=== PATIENT | male | born 1940 | race Caucasian/White ===

== ENCOUNTER 2018-10-15 16:28 | Emergency (ER) | payer OTHER ==
[~2018-10-15] VITALS: Ht 177.8 cm; Wt 103.4 kg
[~2018-10-15 16:28] MED LIST: COREG; GLUCOPHAGE1000 MG; INSULIN LEVIMIR; ZESTRIL
[2018-10-15] MEDS ORDERED: LISINOPRIL40 MG PO (16:53)
[2018-10-15] MEDS ORDERED: FLOMAX0.4 MG PO (16:54)
[2018-10-15] MEDS ORDERED: NEURONTIN 300300 M1 PO (16:54)
[2018-10-15] MEDS ORDERED: ASPIR 8181 MG PO (16:54)
[2018-10-15 17:34] LABS: ABSOLUTE BASOPHILS 0.1 thou/uL (0.0-0.2); ABSOLUTE EOSINOPHILS 0.1 thou/uL (0.0-0.7); ABSOLUTE LYMPHOCYTES 1.3 thou/uL (0.8-5.3); ABSOLUTE MONOCYTES 0.7 thou/uL (0.0-1.2); ABSOLUTE NEUTROPHILS 4.9 thou/uL (1.6-8.1); BASOPHILS 0.8 %; EOSINOPHILS 1.8 %; HEMATOCRIT 46.8 % (42.0-52.0); HEMOGLOBIN 15.3 gm/dL (14.0-18.0); LYMPHOCYTES 17.6 %; MCH 25.8 pg (26.0-34.0); MCHC 32.7 g/dL (28.0-37.0); MCV 78.8 fL (80.0-100.0); MONOCYTES 10.4 %; MPV 8.9 fl. (7.2-11.1); NUCLEATED RBCS 0 /100WBC; PLATELET COUNT* 232 thou/uL (150-400); POLYS 69.4 %; RBC 5.94 mil/uL (4.50-6.00); RDW-CV 14.4 % (10.5-14.5); WBC 7.1 thou/uL (4.0-11.0)
[2018-10-15 17:45] LABS: ANION GAP 8 mmol/L (7-16); BUN 31 mg/dL (7-18); CHLORIDE 103 mmol/L (98-107); CO2 25 mmol/L (21-32); CREATININE 1.3 mg/dL (0.6-1.3); GLUCOSE 142 mg/dL (70-99); POTASSIUM 4.8 mmol/L (3.5-5.1); SODIUM 136 mmol/L (136-145)
[2018-10-15 17:51] LABS: ALBUMIN 3.6 g/dL (3.4-5.0); ALKALINE PHOSPHATASE 79 U/L (46-116); LIPASE 121 U/L (73-393); SGOT 26 U/L (15-37); SGPT 47 U/L (30-65); TOTAL BILIRUBIN 0.4 mg/dL (<0.1-1.0); TOTAL PROTEIN 7.2 g/dL (6.4-8.2); TROPONIN-I LEVEL <0.06 ng/mL (<0.06)
[2018-10-15] MEDS ORDERED: LEVAQUIN 750 M750 MG PO (18:42)
[2018-10-15 19:16] VITALS: BP 167/86
--- NOTE | 2018-10-16 10:09 | EKG ---
[place] [address] ELECTROCARDIOGRAM REPORT Name: LENA ANGELA [id number] Admission: 10/15/18 Attend Phys: Discharge: 10/15/18 Date of : 36 Report #: [id number] THIS REPORT FOR: //name// [facility] ED Test Date: 2018-10-15 Test Time: 17:21:46 Pat Name: LENA ANGELA Department: Room: Gender: M Scientific Advisor: : 1940 Requested By: Cedric García Order Number: [id number] MD: Gildardo Fischer Measurements Intervals [place] Rate: 88 P: 42 MI: 156 QRS: 48 QRSD: 95 T: 48 QT: 380 QTc: 460 Interpretive Statements Sinus rhythm Probable left atrial enlargement Compared to ECG 05/05/2011 12:31:49 No significant changes Electronically Signed On 10-16-2018 10:09:16 SURVEYOR HELPER ROD by Gildardo Fischer [email or web address] <ELECTRONICALLY SIGNED> By: Gildardo Fischer MD, [facility] 10/16/18 1009 1721 1721 Gildardo Fischer MD, FACC /EPI
== END 2018-10-15 19:20 | disposition home or self-care (01) ==
LOC: M.ERS 16:28
PROVIDERS: Emergency Medicine Emergency Medical Services
DX: R42 Dizziness and giddiness (principal); T36.4X5A Adverse effect of tetracyclines, initial encounter; Z95.1 Presence of aortocoronary bypass graft; I10 Essential (primary) hypertension; Y92.89 Other specified places as the place of occurrence of the external cause

== ENCOUNTER 2018-11-16 05:23 | Inpatient (IN) | payer OTHER ==
[~2018-11-16] VITALS: Ht 152.4 cm; Wt 99.0 kg
[~2018-11-16 05:23] MED LIST changes: +ASPIR 8181 MG PO; +FLOMAX0.4 MG PO; +LEVAQUIN 750 M750 MG PO; +LISINOPRIL40 MG PO; +NEURONTIN 300300 M1 PO
[2018-11-16 05:24] VITALS: BP 149/73
[2018-11-16 05:35] LABS: ABSOLUTE BASOPHILS 0.1 thou/uL (0.0-0.2); ABSOLUTE EOSINOPHILS 0.2 thou/uL (0.0-0.7); ABSOLUTE LYMPHOCYTES 1.4 thou/uL (0.8-5.3); ABSOLUTE MONOCYTES 0.8 thou/uL (0.0-1.2); ABSOLUTE NEUTROPHILS 4.4 thou/uL (1.6-8.1); BASOPHILS 1.2 %; EOSINOPHILS 2.6 %; HEMATOCRIT 44.3 % (42.0-52.0); HEMOGLOBIN 14.7 gm/dL (14.0-18.0); LYMPHOCYTES 20.2 %; MCH 26.2 pg (26.0-34.0); MCHC 33.3 g/dL (28.0-37.0); MCV 78.7 fL (80.0-100.0); MONOCYTES 11.7 %; NUCLEATED RBCS 0 /100WBC; PLATELET COUNT* 189 thou/uL (150-400); POLYS 64.3 %; RBC 5.63 mil/uL (4.50-6.00); WBC 6.8 thou/uL (4.0-11.0)
[2018-11-16] MEDS ORDERED: TRAZODONE 150150 M1 PO (05:36)
[2018-11-16 05:45] LABS: ANION GAP 7 mmol/L (7-16); BUN 41 mg/dL (7-18); CHLORIDE 104 mmol/L (98-107); CO2 23 mmol/L (21-32); CREATININE 1.7 mg/dL (0.6-1.3); GLUCOSE 147 mg/dL (70-99); SODIUM 134 mmol/L (136-145)
[2018-11-16 05:47] LABS: PROTIME 10.3 Seconds (9.20-11.50)
[2018-11-16 05:57] LABS: ALBUMIN 3.4 g/dL (3.4-5.0); ALKALINE PHOSPHATASE 72 U/L (46-116); LIPASE 156 U/L (73-393); NT-PRO BRAIN NAT PEPTIDE 85 pg/mL (<300); SGOT 21 U/L (15-37); SGPT 35 U/L (30-65); TOTAL BILIRUBIN 0.3 mg/dL (<0.1-1.0); TOTAL PROTEIN 6.6 g/dL (6.4-8.2); TROPONIN-I LEVEL <0.06 ng/mL (<0.06)
[2018-11-16 09:57] VITALS: BP 143/79
[2018-11-16 10:28] VITALS: BP 143/79
[2018-11-16 12:50] VITALS: BP 185/95
--- NOTE | 2018-11-16 13:51 | NUR ---
REHAB CONSULTATION RECEIVED AND ACKNOWLEDGED BY YARD PIPE GRADER AND DR. ROBERT. WILL FOLLOW PT'S CARE AND THERAPY PARTICIPATION. THANK YOU
--- NOTE | 2018-11-16 15:45 | 2DMMODE ---
[place] [address] 2 D/M-MODE ECHOCARDIOGRAM Name: LENA ANGELA Room: [address] IN [facility]#: [id number] Admission: 11/16/18 Attend Phys: Luis Hearn Discharge: Date of : 36 Date of Service: 11/16/18 1545 Report #: [id number] THIS REPORT FOR: //name// APPROVED REPORT Study performed: 11/16/2018 15:10:08 EXAM: Comprehensive 2D, Doppler, and color-flow Echocardiogram Patient Location: In-Patient Room #: [facility]– [place][note 2] Status: routine BSA: 2.17 HR: 84 bpm BP: 185/95 mmHg Rhythm: NSR Other Information Study Quality: Good Indications Murmur 2D Dimensions IVSd: 13.37 (7-11mm) LVOT Diam: 20.02 (18-24mm) LVDd: 43.53 mm PWd: 11.59 (7-11mm) Ascending Ao: 34.58 (22-36mm) LVDs: 23.72 (25-40mm) Aortic Root: 34.12 mm Volumes Left Atrial Volume (Systole) LA ESV Index: 18.90 mL/m2 Aortic Valve AoV Peak Dileep.: 2.81 m/s AO Peak Gr.: 31.47 mmHg LVOT Max P.78 mmHg AO Mean Gr.: 19.13 mmHg LVOT Mean P.14 mmHg LVOT Max V: 1.30 m/s AO V2 VTI: 54.67 cm LVOT Mean V: 0.80 m/s ANN MARIE (VTI): 1.50 cm2 LVOT V1 VTI: 25.96 cm Mitral Valve E/A Ratio: 0.72 MV Decel. Time: 225.41 ms MV E Max Dileep.: 0.81 m/[place] [address] 2 D/M-MODE ECHOCARDIOGRAM Name: LENA ANGELA Room: [address] IN [facility]#: [id number] Admission: 11/16/18 Attend Phys: Luis Hearn Discharge: Date of : 36 Date of Service: 11/16/18 1545 Report #: [id number] MV PHT: 65.37 ms MVA (PHT): 3.37 cm2 TDI E/Lateral E': 11.57 E/Medial E': 10.13 Medial E' Dileep.: 0.08 m/s Lateral E' Dileep.: 0.07 m/s Pulmonary Valve PV Peak Dileep.: 1.08 m/s PV Peak Gr.: 4.63 mmHg Left Ventricle The left ventricle is normal size. There is normal LV segmental wall motion. Mild concentric left ventricular hypertrophy. Left ventricular systolic function is normal. The left ventricular ejection fraction is within the normal range. LVEF is 60-65%. Grade I - abnormal relaxation pattern. Right Ventricle The right ventricle is normal size. The right ventricular systolic function is normal. Atria The left atrium size is normal. The right atrium size is normal. Aortic Valve Moderate aortic valve sclerosis. Trace aortic regurgitation. Mild aortic stenosis. Mitral Valve The mitral valve is normal in structure. There is no mitral valve regurgitation noted. No evidence of mitral valve stenosis. Tricuspid Valve The tricuspid valve is normal in structure. Unable to assess PA pressure. Trace tricuspid regurgitation. Pulmonic Valve The pulmonary valve is normal in structure. There is no pulmonic valvular regurgitation. Great Vessels The aortic root is normal in size. IVC is normal in size and collapses >50% [place] [address] 2 D/M-MODE ECHOCARDIOGRAM Name: LNEA ANGELA Room: [address] IN [facility]#: [id number] Admission: 11/16/18 Attend Phys: Luis Hearn Discharge: Date of : 36 Date of Service: 11/16/18 1545 Report #: [id number] Pericardium There is no pericardial effusion. <Conclusion> The left ventricle is normal size. Mild concentric left ventricular hypertrophy. Left ventricular systolic function is normal. The left ventricular ejection fraction is within the normal range. LVEF is 60-65%. Grade I - abnormal relaxation pattern. The right ventricle is normal size. The left atrium size is normal. Moderate aortic valve sclerosis. Trace aortic regurgitation. Mild aortic stenosis. The mitral valve is normal in structure. The tricuspid valve is normal in structure. IVC is normal in size and collapses >50% with inspiration. There is no pericardial effusion. There is normal LV segmental wall motion. <ELECTRONICALLY SIGNED> By: Mark Rai MD, [facility] 11/16/18 1545 1545 1545 Mark Rai MD, FACC /INF
--- NOTE | 2018-11-16 15:58 | EKG ---
[place] [address] ELECTROCARDIOGRAM REPORT Name: LENA ANGELA Room: [address] ADM IN M.R.#: [id number] Admission: 11/16/18 Attend Phys: Ran Barker Discharge: Date of : 36 Report #: [id number] THIS REPORT FOR: //name// [facility] ED Test Date: 2018-11-16 Test Time: 05:33:17 Pat Name: LENA ANGELA Department: Room: [facility] Gender: M Wind Turbine Performance Engineer: AJ : 1940 Requested By: Naida Mercedes Order Number: [id number] MD: Mark Rai Measurements Intervals [place] Rate: 89 P: 49 DC: 156 QRS: 64 QRSD: 94 T: 5 QT: 381 QTc: 464 Interpretive Statements Sinus rhythm Probable left atrial enlargement Borderline T wave abnormalities Compared to ECG 10/15/2018 17:21:46 T-wave abnormality now present Electronically Signed On 11-16-2018 15:58:07 LUGGER by Mark Rai [email or web address] <ELECTRONICALLY SIGNED> By: Mark Rai MD, [facility] 11/16/18 1558 0533 0533 Mark Rai MD, [facility] /EPI
[2018-11-16 16:03] VITALS: BP 153/75
--- NOTE | 2018-11-16 16:28 | NUR ---
I have reviewed the documentation by JUDSON GLOVER from TODAY 11/16/18 and I concur with it. FELI CORDOVA
[2018-11-16] MEDS ORDERED: NOVOLOG100 UNIT/1 SUBQ (16:33)
[2018-11-16] MEDS ORDERED: LANTUS100 UNIT/M SUBQ (16:34)
--- NOTE | 2018-11-16 16:59 | NUR ---
PT ALERT AND ORIENTED, NIH 0. TELE TRACKING NSR AND ALL VSS ON ROOM AIR. PT DOES C/O NUMBNESS TO BILAT HANDS AND FEET. PT PASSED NURSING BEDSIDE SWALLOW AND ST SWALLOW STUDY- TOLERATING DIET. EDUCATED ON SAFETY AND PLAN OF CARE. PLEASE SEE ASSESSMENT FOR ADDITIONAL INFORMATION. WILL CONTINUE TO MONITOR
[2018-11-16 19:45] VITALS: BP 158/72
[2018-11-17] VITALS: BP 140/60
[2018-11-17 04:00] VITALS: BP 112/64
[2018-11-17 04:39] LABS: ALKALINE PHOSPHATASE 65 U/L (46-116); ANION GAP 7 mmol/L (7-16); BUN 30 mg/dL (7-18); CALCIUM 8.4 mg/dL (8.5-10.1); CHLORIDE 106 mmol/L (98-107); CHOLESTEROL 193 mg/dL (<200); CO2 25 mmol/L (21-32); CREATININE 1.3 mg/dL (0.6-1.3); GLUCOSE 103 mg/dL (70-99); HDL CHOLESTEROL 37 mg/dL (>40); LDL CHOLESTEROL 131 mg/dL (<100); POTASSIUM 4.4 mmol/L (3.5-5.1); SGOT 18 U/L (15-37); SGPT 29 U/L (30-65); SODIUM 138 mmol/L (136-145); TC:HDL 5.2 Ratio (Not establshd); TOTAL BILIRUBIN 0.4 mg/dL (<0.1-1.0); TOTAL PROTEIN 6.1 g/dL (6.4-8.2); TRIGLYCERIDE 127 mg/dL (<150); VLDL 25 mg/dL (<40)
[2018-11-17 04:47] LABS: SERUM ASSESSMENT CLEAR
--- NOTE | 2018-11-17 06:12 | NUR ---
RECEIVED REPORT AND ASSUMED CARE AT 1900. VSS. CARDIAC MONITORING IN PLACE. PT DENIES ANY COMPLAINTS OF PAIN. ASSESSMENT COMPLETED CHARTED. PT UP WITH SBA,ON RA. MEDICATION ADMIN PER EMAR. NIH=0. BED LOCKED IN LOWEST POSITION, CALL LIGHT WITHIN REACH, BED ALARM ON. HOURLY ROUNDING COMPLETED AND ALL NEEDS MET. NURSING WILL CONTINUE TO MONITOR
[2018-11-17 08:11] VITALS: BP 140/80
[2018-11-17 11:12] VITALS: BP 152/71
--- NOTE | 2018-11-17 13:46 | NUR ---
PT ALERT AND ORIENTED, NIH O. PT DOES C/O INTERMITTENT FACIAL "TINGLING". TELE TRACKING NSR AND ALL VSS ON ROOM AIR. DENIES CP, SOA. EDUCATED ON SAFETY AND PLAN OF CARE. PLEASE SEE ASSESSMENT FOR ADDITIONAL INFORMATION. WILL CONTINUE TO MONITOR
--- NOTE | 2018-11-17 14:21 | NUR ---
Pt is A&O. Resides at home alone, states that he has a strong support sx. Independent and active, Pt states that he doesn't cook, he eats frozen meals, but he continues to clean and drive. No DME. No hx of HH or SNF. Pt's goal is to return home, he is open to HH if ordered. Following.
[2018-11-17 16:51] VITALS: BP 111/63
--- NOTE | 2018-11-17 17:32 | NUR ---
CONTINUING TO FOLLOW PATIENT ALONG WITH DR. ROBERT. MRI SHOWING RIGHT FRONTAL CVA. PATIENT WAS EVALUATED BY PT. OT/ST EVALUATIONS ARE PENDING. WILL CONTINUE TO FOLLOW.
[2018-11-17 20:00] VITALS: BP 126/65; BP 136/61
[2018-11-18] VITALS (7 sets, daily range): BP systolic 88–152; BP diastolic 46–64
[2018-11-18 02:06] LABS: GLYCOHEMOGLOBIN (HGB A1C) 9.8 % (4.8-5.6)
[2018-11-18 05:40] LABS: ABSOLUTE BASOPHILS 0.1 thou/uL (0.0-0.2); ABSOLUTE EOSINOPHILS 0.1 thou/uL (0.0-0.7); ABSOLUTE LYMPHOCYTES 1.1 thou/uL (0.8-5.3); ABSOLUTE MONOCYTES 0.8 thou/uL (0.0-1.2); ABSOLUTE NEUTROPHILS 6.1 thou/uL (1.6-8.1); BASOPHILS 0.8 %; EOSINOPHILS 1.1 %; HEMATOCRIT 42.6 % (42.0-52.0); HEMOGLOBIN 13.7 gm/dL (14.0-18.0); LYMPHOCYTES 13.7 %; MCH 25.7 pg (26.0-34.0); MCHC 32.2 g/dL (28.0-37.0); MCV 79.9 fL (80.0-100.0); MONOCYTES 10.3 %; MPV 9.7 fl. (7.2-11.1); NUCLEATED RBCS 0 /100WBC; PLATELET COUNT* 186 thou/uL (150-400); POLYS 74.1 %; RBC 5.33 mil/uL (4.50-6.00); RDW-CV 14.4 % (10.5-14.5); WBC 8.2 thou/uL (4.0-11.0)
[2018-11-18 05:46] LABS: CALCIUM 8.6 mg/dL (8.5-10.1); CREATININE 1.6 mg/dL (0.6-1.3); POTASSIUM 4.6 mmol/L (3.5-5.1)
--- NOTE | 2018-11-18 11:52 | NUR ---
RECEIVED REPORT FROM [facility] NURSE. ASSUMED CARE OF PT AROUND 0730. PT A&OX4. VSS. MECHANIC/WELDER IN PLACE TRACING SR. AM ASSESSMENT AND VITALS COMPLETED CHARTED. PT REPORTING SLIGHT TINGLING IN BILAT HANDS AND SOME BLURRY VISION; NEUROLOGY AWARE AND FOLLOWING. PT WORKED WITH P.T. - WALKER RECOMMENDED. CASE MANAGEMENT FOLLOWING - PT TO DC WITH HOME HEALTH POTENTIALLY TOMORROW. PLAN IS FOR PT TO INCREASE ACTIVIY THIS SHIFT; MONITOR BP'S. PT CURRENTLY RESTING IN BED VISITING WITH FAMILY. FALL PRECAUTIONS IN PLACE. CALL LIGHT IS WITHIN REACH. HOURLY ROUNDING. WCTM.
--- NOTE | 2018-11-18 15:24 | NUR ---
LAND ACQUISITION SPECIALIST NOTATION: MET WITH PATIENT TO DISCUSS PLAN FOR DISCHARGE. NO QUESTIONS THIS TIME.
[2018-11-18 16:15] LABS: URINE BILIRUBIN NEGATIVE (Negative); URINE BLOOD NEGATIVE (Negative); URINE CLARITY CLEAR; URINE COLOR YELLOW; URINE GLUCOSE-RANDOM 1+ (Negative); URINE KETONES NEGATIVE (Negative); URINE LEUKOCYTES-REFLEX NEGATIVE (Negative); URINE NITRITE-REFLEX NEGATIVE (Negative); URINE PROTEIN NEGATIVE (Negative); URINE UROBILINOGEN 0.2 E.U./dl (0.2-1.0)
--- NOTE | 2018-11-18 17:44 | NUR ---
PT CONTINUING TO REPORT BLURRY VISION, THOUGH NIH SCORE IS 0. DOCTOR NOTIFIED - STAT HEAD CT ORDERED. SEE RESULTS. MEDS PER EMAR. TALENT MANAGEMENT SPECIALIST REMAINS IN PLACE WITH NO CHANGES THIS SHIFT. VSS. PT ABLE TO SHOWER WITH O.T. PT TOLERATING DIET; PT FELT LIKE BLOOD GLUCOSE WAS LOW, CHECKED AND READ 208. FAMILY IN AND OUT THIS SHIFT. PT CONCERNED ABOUT WELL-BEING; REASSURANCE GIVEN. PT CURRENTLY RESTING IN BED TALKING ON CELL PHONE. FALL PRECAUTIONS ARE IN PLACE. CALL LIGHT IS WITHIN REACH. HOURLY ROUNDING PERFORMED. ALL NEEDS MET AT THIS TIME. WILL CONTINUE TO MONITOR FOR DURATION OF SHIFT.
[2018-11-19] VITALS (7 sets, daily range): BP systolic 81–155; BP diastolic 39–86
--- NOTE | 2018-11-19 08:00 | NUR ---
ASSUMED PT CARE AT 0700, PT LYING IN BED, CALL LIGHT IN REACH, LODE MINER TRACING SINUS RHYTHM. IV FLUIDS RUNNING, 0 ON THE NIH SCALE, A&O X4. VSS, DENIES ANY PAIN, UP AD ERICA. PT HAD SOME HYPOTENSIVE EPISODES OVER NIGHT, IF BP STABLE SHOULD BE ABLE TO DC THIS DAY. WILL CONT TO MONITOR.
--- NOTE | 2018-11-19 08:21 | NUR ---
ASSUMED PT CARE @ 193. A+OX4. TRACING SR ON MONITOR. PT'S BP LOW AT BEGINNING OF SHIFT. 88/46. GAVE PT BOX LUNCH AND ENNCOURAGED FLUIDS. BP RECHECK CAME UP TO 147/75. PT'S MIDNIGHT BP LOW. SALES SUPPORT TECHNICIAN NOTIFIED. FLUID BOLUS AND CONTINUATION OF MAINTENANCE FLUIDS ORDERED. EFFECTIVE. BP WAS UP TP 130/72 BY 0230. PT C/O OF SOME SOA. PT SEEMED ANXIOUS ABOUT STOPPING BP MEDS AND WHY BP IS LOW AND WANTING TO D/G NEXT DAY. FREQUENT REASSURANCE AND TEACHING. O2 SAT 98% ON RA. PT DID HAVE COUGH AT BEGINNING OF SHIFT. PUT O2 2L ON PT WHILE BP WAS LOW. PT WAS FINALLY ABLE TO FALL ASLEEP AND RELAX. CALL LIGHT IN REACH. HOURLY ROUNDING FOR SAFETY.
[2018-11-19] MEDS ORDERED: ATORVASTATIN CA40 MG PO (13:31)
--- NOTE | 2018-11-19 15:20 | NUR ---
PT DISCHARGED HOME VIA NURSING STAFF WITH FRIEND. EDUCATED ON ALL DISCHARGE INSTRUCTIONS AND MEDICATIONS, IV AND TRADEMARK ATTORNEY REMOVED. HOURLY ROUNDING COMPLETED. PT STATES UNDERSRANDING ON ALL DISCHARGE INSTRUCTIONS.
--- NOTE | 2018-11-21 09:54 | CON ---
[address] [address] CONSULTATION Name: LENA ANGELA Room: [address] IN ..#: [id number] Admission: 11/16/18 Attend Phys: Ran Barker Discharge: 11/19/18 Date of : 36 Report #: [id number] THIS REPORT FOR: //name// CC: Haley Hearn DATE OF SERVICE: 11/16/2018 HISTORY OF PRESENT ILLNESS: This is an 78-year-old male patient who was evaluated by me for dizziness as well as numbness. History is somewhat unstructured, but he indicated that he woke up with dizziness and numbness. In fact, he said it woke him up. There was not much focality and symptoms were mostly generalized. He thought it was his blood sugar, but he checked his blood sugar and it was 106. Since then, he has improved. His symptoms are much better. He denies any prior history of stroke and there was no focality to his symptoms. REVIEW OF SYSTEMS: Indicate that this patient is a diabetic. He said his blood sugar has been fluctuating. He has lost some weight. He never had any history of stroke. He has a history of bypass surgery in 2005. He does have a history of hypertension. He denies any new eye, ENT, cardiac, respiratory, GI, , constitutional, dermatological, hematological, psychiatric, throat, allergic symptom associated with present symptomatology. PAST MEDICAL HISTORY: Positive for coronary artery disease. FAMILY HISTORY: Positive for coronary artery disease. SOCIAL HISTORY: He indicates he does not smoke or drink alcohol. PHYSICAL EXAMINATION: Indicates that he is alert, responsive. His speech, concentration, fund of knowledge and memory is at his baseline. His cranial nerve examinations appear unremarkable. His neuromuscular examinations indicate that his reflexes may be asymmetrical to some extent on the left side. It appeared to be hyper especially in the knee and to some extent on the arm. His position sense is intact on both sides. Knee jerk is definitely elicitable on the left knee. His tone and strength look preserved on both sides. He does not have any cerebellar sign. I could not have a very good look at the patient's fundus. He is a very well developed individual who does not have any dysmorphic features of eyes, ears and face. His vision and hearing look adequate. He does not have any thyroid mass. His pulses are somewhat difficult to feel in the legs, but he has no edema, cyanosis or jaundice. His cardiac examination is unremarkable. He does not have any respiratory difficulty or rhonchi. His blood pressure is 147/80, his respiration is 20, pulse is 77, temperature is 98.3. [place] [address] CONSULTATION Name: COREENLENA Gilbert Room: [address]#: [id number] Admission: 11/16/18 Attend Phys: Ran Barker Discharge: 11/19/18 Date of : 36 Report #: [id number] LABORATORY DATA: His white count is 6.8. His sodium is 134. He did have a CT scan of the head, which appears unremarkable. IMPRESSION: This patient had an episode for which etiology is not clear on examination. Some of his reflexes look asymmetrical and look somewhat hyper on the left side as compared to the right side, especially the knee jerks. Because of that, he needs further workup. We will start with an MRI of the brain to see if we can find some etiology there. If MRI of the brain does not show any pathology, which can explain his symptoms, we may have to work up the spine. He is expected to have some neuropathy and carpal tunnel syndrome with his diabetes. That may be the cause of the numbness of his hands and feet, but that needs to be addressed as an outpatient. RECOMMENDATIONS: 1. MRI. 2. MRA. 3. We will await this workup to see if we need any spine workup. 4. He needs some workup of neuropathy, but that will be done as an outpatient since we do not have any EMG machine. <ELECTRONICALLY SIGNED> By: Marciano Ríos MD 11/21/18 0954 0956 1907Marciano Ríos MD /nt
== END 2018-11-19 15:27 | disposition home or self-care (01) | DRG 64 ==
LOC: M.ERS 05:23 → M.2W 08:25 → M.TBA-ER 08:25 → M.2W 09:42
PROVIDERS: Emergency Medicine; ADMIT Internal Medicine
DX: I63.9 Cerebral infarction, unspecified (principal); N17.0 Acute kidney failure with tubular necrosis; I10 Essential (primary) hypertension; K21.9 Gastro-esophageal reflux disease without esophagitis; I25.10 Atherosclerotic heart disease of native coronary artery without angina pectoris; N40.0 Benign prostatic hyperplasia without lower urinary tract symptoms; E11.40 Type 2 diabetes mellitus with diabetic neuropathy, unspecified; F32.9 Major depressive disorder, single episode, unspecified; F43.10 Post-traumatic stress disorder, unspecified; R01.1 Cardiac murmur, unspecified; I35.8 Other nonrheumatic aortic valve disorders; I35.0 Nonrheumatic aortic (valve) stenosis; G90.9 Disorder of the autonomic nervous system, unspecified; Z95.1 Presence of aortocoronary bypass graft; Z82.49 Family history of ischemic heart disease and other diseases of the circulatory system; Z79.899 Other long term (current) drug therapy

== ENCOUNTER 2018-11-24 20:33 | Inpatient (IN) | payer OTHER ==
[~2018-11-24] VITALS: Ht 177.8 cm; Wt 98.9 kg
[~2018-11-24 20:33] MED LIST changes: +ATORVASTATIN CA40 MG PO; +LANTUS100 UNIT/M SUBQ; +NOVOLOG100 UNIT/1 SUBQ; +TRAZODONE 150150 M1 PO
[2018-11-24 20:36] VITALS: BP 180/86
[2018-11-24 20:50] LABS: ABSOLUTE BASOPHILS 0.1 thou/uL (0.0-0.2); ABSOLUTE EOSINOPHILS 0.1 thou/uL (0.0-0.7); ABSOLUTE LYMPHOCYTES 1.4 thou/uL (0.8-5.3); ABSOLUTE MONOCYTES 0.8 thou/uL (0.0-1.2); ABSOLUTE NEUTROPHILS 4.9 thou/uL (1.6-8.1); BASOPHILS 1.1 %; EOSINOPHILS 1.6 %; HEMATOCRIT 45.8 % (42.0-52.0); HEMOGLOBIN 15.1 gm/dL (14.0-18.0); LYMPHOCYTES 19.6 %; MCH 25.7 pg (26.0-34.0); MCHC 32.9 g/dL (28.0-37.0); MCV 78.3 fL (80.0-100.0); MONOCYTES 10.8 %; MPV 9.2 fl. (7.2-11.1); NUCLEATED RBCS 0 /100WBC; PLATELET COUNT* 214 thou/uL (150-400); POLYS 66.9 %; RBC 5.85 mil/uL (4.50-6.00); RDW-CV 14.3 % (10.5-14.5); WBC 7.4 thou/uL (4.0-11.0)
[2018-11-24 20:58] LABS: ANION GAP 7 mmol/L (7-16); BUN 32 mg/dL (7-18); CALCIUM 9.6 mg/dL (8.5-10.1); CHLORIDE 103 mmol/L (98-107); CO2 25 mmol/L (21-32); CREATININE 1.4 mg/dL (0.6-1.3); GLUCOSE 100 mg/dL (70-99); POTASSIUM 4.3 mmol/L (3.5-5.1); SODIUM 135 mmol/L (136-145)
[2018-11-24 20:59] LABS: APTT 27.1 Seconds (25.0-31.3); PROTIME 10.1 Seconds (9.20-11.50)
[2018-11-24 21:09] LABS: ALBUMIN 3.7 g/dL (3.4-5.0); ALKALINE PHOSPHATASE 74 U/L (46-116); NT-PRO BRAIN NAT PEPTIDE 124 pg/mL (<300); SGOT 20 U/L (15-37); SGPT 42 U/L (30-65); TOTAL BILIRUBIN 0.3 mg/dL (<0.1-1.0); TOTAL PROTEIN 7.3 g/dL (6.4-8.2); TROPONIN-I LEVEL <0.06 ng/mL (<0.06)
[2018-11-24 21:51] LABS: URINE BILIRUBIN NEGATIVE (Negative); URINE BLOOD NEGATIVE (Negative); URINE CLARITY CLEAR; URINE COLOR YELLOW; URINE GLUCOSE-RANDOM NEGATIVE (Negative); URINE KETONES NEGATIVE (Negative); URINE LEUKOCYTES-REFLEX NEGATIVE (Negative); URINE NITRITE-REFLEX NEGATIVE (Negative); URINE PROTEIN NEGATIVE (Negative); URINE UROBILINOGEN 0.2 E.U./dl (0.2-1.0)
[2018-11-24 22:53] VITALS: BP 177/84
[2018-11-24 23:00] VITALS: BP 150/79
--- NOTE | 2018-11-25 01:32 | NUR ---
PT. TRANSFERRED VIA ER CART TO ROOM 112 @ 7876. STEADY. ALERT AND ORIENTED. ROOM AIR. VITAL SIGNS WITHIN NORMAL LIMITS. ORIENTED TO ROOM. UP AD ERICA. DENIES NEEDS, CALL LIGHT IN REACH. WILL CONTINUE TO MONITOR.
--- NOTE | 2018-11-25 05:29 | NUR ---
PT. HAS BEEN AMBULATING DOWN HALLWAYS THROUGHOUT ENTIRE EVENING. HAS NOT SLEPT SINCE ADMISSION. VERY RESTLESS. WONDERING WHEN HE WILL GO HOME. ENCOURAGED TO LAY DOWN AND GET SOME REST SO HE CAN DISCUSS DISCHARGE PLANS WITH DOCTOR WHEN THEY ROUND. WILL CONTINUE TO MONITOR.
--- NOTE | 2018-11-25 09:26 | EKG ---
[place] [address] ELECTROCARDIOGRAM REPORT Name: LENA ANGELA Room: [address] ADM IN R.#: [id number] Admission: 11/24/18 Attend Phys: Ran Barker Discharge: Date of : 36 Report #: [id number] THIS REPORT FOR: //name// [facility] ED Test Date: 2018-11-24 Test Time: 20:37:49 Pat Name: LENA ANGELA Department: Room: [facility] Gender: M Medical Officer Psychiatry: : 1940 Requested By: Tolu Rajput Order Number: [id number] MD: Gildardo Fischer Measurements Intervals [place] Rate: 88 P: 61 OR: 160 QRS: 63 QRSD: 93 T: 54 QT: 395 QTc: 478 Interpretive Statements Sinus rhythm Probable left atrial enlargement Borderline prolonged QT interval Compared to ECG 11/16/2018 05:33:17 no change Electronically Signed On 11-25-2018 9:26:07 REAL ESTATE UTILIZATION OFFICER by Gildardo Fischer [email or web address] <ELECTRONICALLY SIGNED> By: Gildardo Fischer MD, [facility] 11/25/18925 36 36 Gildardo Fischer MD, [facility] /EPI
[2018-11-25 11:10] VITALS: BP 153/81
--- NOTE | 2018-11-25 12:02 | NUR ---
PT.TO BE DISCHARGED TODAY. HE WAS WANTING TO GO HOME BECAUSE HE HAS A DANCE TO GO TO TOMORROW EVENING. HE LIKES DANCING WITH ALL THE LADIES. HE IS FEELING BETTER. HE LIVES ALONE. CONTINUES TO DRIVE,CLEAN, COOK,ETC. HE HAS A WALKER BUT DOESN'T USE IT. PT.WILL NEED A CAB VOUCHER TO GET HOME. ONE PROVIDED TO PTS NURSE.
[2018-11-25 14:33] VITALS: BP 153/81
[2018-11-25] MEDS ORDERED: COLACE100 MG PO (14:36)
--- NOTE | 2018-11-25 15:22 | NUR ---
I ASSUMED CARE OF THE PATIENT AT 0700. HE IS ALERT AND ORIENTED X4 AND IS UP AD ERICA. BED IS IN THE LOW LOCKED POSITION AND CALL LIGHT IS IN REACH. HOURLY ROUNDING WAS COMPLETED AND PATIENT NEEDS ARE MET. PAIN IS DENIED. PATIENT IS DISCHARGED TO HOME AND TRANSPORTATION WAS USED TO GET HIM HOME. IV IS REMOVED.
[2018-11-25 15:31] VITALS: BP 153/81
== END 2018-11-25 14:25 | disposition home or self-care (01) | DRG 641 ==
LOC: M.ERS 20:33 → M.ORTHSURG 21:51 → M.TBA-ER 21:51 → M.ORTHSURG 23:09
PROVIDERS: Family Medicine; ADMIT Internal Medicine
DX: E86.0 Dehydration (principal); I10 Essential (primary) hypertension; K21.9 Gastro-esophageal reflux disease without esophagitis; Z86.73 Personal history of transient ischemic attack (TIA), and cerebral infarction without residual deficits; Z95.1 Presence of aortocoronary bypass graft; Z79.899 Other long term (current) drug therapy; Z79.82 Long term (current) use of aspirin

== ENCOUNTER 2018-11-29 12:23 | Inpatient (IN) | payer OTHER ==
[~2018-11-29] VITALS: Ht 177.8 cm; Wt 101.6 kg
[~2018-11-29 12:23] MED LIST changes: +COLACE100 MG PO
[2018-11-29 12:24] VITALS: BP 154/76
[2018-11-29 12:49] LABS: ABSOLUTE EOSINOPHILS 0.1 thou/uL (0.0-0.7); ABSOLUTE LYMPHOCYTES 1.2 thou/uL (0.8-5.3); ABSOLUTE MONOCYTES 0.7 thou/uL (0.0-1.2); ABSOLUTE NEUTROPHILS 5.1 thou/uL (1.6-8.1); BASOPHILS 0.6 %; HEMATOCRIT 47.4 % (42.0-52.0); HEMOGLOBIN 15.6 gm/dL (14.0-18.0); LYMPHOCYTES 16.7 %; MCH 26.1 pg (26.0-34.0); MCV 79.1 fL (80.0-100.0); MONOCYTES 9.6 %; MPV 9.7 fl. (7.2-11.1); NUCLEATED RBCS 0 /100WBC; PLATELET COUNT* 197 thou/uL (150-400); POLYS 72.1 %; RDW-CV 14.5 % (10.5-14.5); WBC 7.1 thou/uL (4.0-11.0)
[2018-11-29 12:54] LABS: ANION GAP 9 mmol/L (7-16); BUN 36 mg/dL (7-18); CALCIUM 9.3 mg/dL (8.5-10.1); CHLORIDE 99 mmol/L (98-107); CO2 25 mmol/L (21-32); CREATININE 1.6 mg/dL (0.6-1.3); GLUCOSE 216 mg/dL (70-99); POTASSIUM 4.7 mmol/L (3.5-5.1); SODIUM 133 mmol/L (136-145)
[2018-11-29 13:00] LABS: URINE BILIRUBIN NEGATIVE (Negative); URINE BLOOD NEGATIVE (Negative); URINE CLARITY CLEAR; URINE COLOR YELLOW; URINE GLUCOSE-RANDOM 1+ (Negative); URINE KETONES NEGATIVE (Negative); URINE LEUKOCYTES-REFLEX NEGATIVE (Negative); URINE NITRITE-REFLEX NEGATIVE (Negative); URINE PROTEIN NEGATIVE (Negative); URINE SPECIFIC GRAVITY <= 1.005 (1.005-1.030); URINE UROBILINOGEN 0.2 E.U./dl (0.2-1.0)
[2018-11-29 13:01] LABS: ALBUMIN 3.8 g/dL (3.4-5.0); ALKALINE PHOSPHATASE 88 U/L (46-116); MAGNESIUM 2.2 mg/dL (1.8-2.4); SGOT 19 U/L (15-37); SGPT 39 U/L (30-65); TOTAL BILIRUBIN 0.4 mg/dL (<0.1-1.0); TOTAL PROTEIN 7.5 g/dL (6.4-8.2); TROPONIN-I LEVEL <0.06 ng/mL (<0.06)
[2018-11-29 17:41] VITALS: BP 167/82
[2018-11-29 17:50] VITALS: BP 137/74
--- NOTE | 2018-11-29 18:40 | NUR ---
PATINET RESTING IN BED. VITAL OBTAINED AND PATIENT ORIENTED TO ROOM. HOME MEDICATION RECONCILED AND PATINET IS AWARE OF CARE PLAN AND HIS PARTICIPATION IN IT. HOURLY ROUNDING COMPLETED FOR PATINET SAFETY.
[2018-11-29 20:00] VITALS: BP 112/61
[2018-11-29 20:19] LABS: CHOLESTEROL 240 mg/dL (<200); HDL CHOLESTEROL 42 mg/dL (>40); LDL CHOLESTEROL 163 mg/dL (<100); TC:HDL 5.7 Ratio (Not establshd); TRIGLYCERIDE 175 mg/dL (<150); VLDL 35 mg/dL (<40)
[2018-11-29 20:26] LABS: SERUM ASSESSMENT Clear
[2018-11-30] VITALS: BP 153/72
[2018-11-30 04:00] VITALS: BP 150/72
--- NOTE | 2018-11-30 05:21 | NUR ---
RECEIVED REPORT AND ASSUMED CARE AT 1900. VSS. CARDIAC MONITORING IN PLACE. PT DENIES COMPLAINTS OF PAIN. ASSESSMENT COMPLETED CHARTED. PT UP SBA TO BATHROOM,ON RA. BED LOCKED IN LOWEST POSITION, CALL LIGHT WITHIN REACH, BED ALARM ON. HOURLY ROUNDING COMPLETED AND ALL NEEDS MET.
[2018-11-30 08:20] VITALS: BP 150/70
--- NOTE | 2018-11-30 08:53 | NUR ---
REHAB CONSULT RECEIVED AND ACKNOWLEDGED BY DR ROBERT AND HOT PIPE GAUGER. PT RETURNED TO HOSPITAL AFTER BEING DISCHARGED A FEW DAYS PREVIOUS WITH SIMILAR SYPTOMS. PT WITH MRI SHOWING CVA ON FIRST ADMISSION. PT RETURNS WITH EXACERBATED SYMPTOMS. WILL FOLLOW PT THROUGH MEDICAL CARE, AWAITING PT,OT AND ST EVALUATIONS TO DETERMINE PT'S THERAPY NEEDS. THANK YOU FOR THIS CONSULT
--- NOTE | 2018-11-30 09:49 | NUR ---
VP INFORMATION TECHNOLOGY; MET WITH PATIENT THIS MORNING. COMPLAINS OF SOME NUMBNESS ON BOTH SIDES OF FACE, SENSATION IS EQUAL. DISCUSSED USE OF STATIN PATIENT REPORTED HISTORY OF MUSCLE SPASMS AND WILL NOT TAKE, DISCUSSED OTHER OPTIONS WITH DIET. UP TO BATHROOM WITH ROLLING WALKER AND ASSIST OF ONE.
--- NOTE | 2018-11-30 11:08 | NUR ---
RECEIVED REPORT FROM LINDA AND ASSUMED CARE OF PT AT 0730,PT IS A/OX4,VSS.TRACING SR ON MONITOR.IV PATENT WITH IV FLUIDS INFUSING PER ORDERS.NIH COMPLETED PER PROTOCOL.PT IS TEARFUL BUT COOPERATIVE.PT COMPLAINS OF NUMBNESS AND TINGLING IN EYES AND NOSE,NIH SCALE COMPLETED AND DR NOTIFIED.PT LEFT REST IN BED WITH CALL LIGHT AND FALL PRECAUTIONS IN PLACE.WILL CONTINUE IN MONITORED.
[2018-11-30 11:39] VITALS: BP 160/73
--- NOTE | 2018-11-30 11:45 | NUR ---
THIS NURSE REVIEWED THE CHARTING AND NOTES OF THE ORIENTEE NURSE AND AGREES.
--- NOTE | 2018-11-30 12:29 | NUR ---
Pt is A&O. Resides at home alone. Known to this CM from previous hospital stay, Pt was here earlier this month. Normally independent, continues to clean and drive, Pt eats frozen meals. No hx of HH or SNF. Pt has a walker at home that he can use if needed. Pt states he has a good support sx. Following for disposition.
[2018-11-30 15:38] VITALS: BP 137/68
--- NOTE | 2018-11-30 16:00 | EKG ---
[place] [address] ELECTROCARDIOGRAM REPORT Name: LENA ANGELA Room: [address] ADM IN .R.#: [id number] Admission: 11/29/18 Attend Phys: Destinee Ortiz MD Discharge: Date of : 36 Report #: [id number] THIS REPORT FOR: //name// [facility] ED Test Date: 2018-11-29 Test Time: 12:36:51 Pat Name: LENA ANGELA Department: Room: [facility] Gender: M Lease Buyer: ANAHI : 1940 Requested By: Diane Goldman Order Number: [id number] MD: Mark Rai Measurements Intervals [place] Rate: 92 P: 50 CA: 159 QRS: 53 QRSD: 90 T: 13 QT: 380 QTc: 471 Interpretive Statements Sinus rhythm Probable left atrial enlargement Baseline wander in lead(s) V2 Compared to ECG 11/24/2018 20:37:49 No significant changes Electronically Signed On 11-30-2018 16:00:38 FOUNDATION DRILL OPERATOR HELPER by Mark Rai [email or web address] <ELECTRONICALLY SIGNED> By: Mark Rai MD, [facility] 11/30/18 1600 1236 1236 Mark Rai MD, [facility] /EPI
--- NOTE | 2018-11-30 17:51 | NUR ---
VSS,CARDIAC MOMITOR IN PLACE WITH NO CHANGES.NO COMPLAINTS OF PAIN.IV PATENT WITH IV FLUIDS INFUSING PER ORDER.PT TO BE NPO AT MIDNIGHT FOR ANNIE IN THE AM .PT INFORMED OF PLAN OF CARE AND COMMUNICATES UNDERSTANDING.PT AMBULATED IN HALLWAY WITH NURSING STAFF.HOURLY ROUNDING COMPLETED FOR PT SAFETY.CALL LIGHT AND FALL PRECAUTIONS IN PLACE.WILL CONTINUE TO MONITOR FOR DURATION OF SHIFT.
--- NOTE | 2018-11-30 17:59 | NUR ---
THIS NURSE REVIEWED ORIENTEE NURSE PM NOTE AND AGREES.
[2018-11-30 19:50] VITALS: BP 148/69
[2018-12-01] VITALS (15 sets, daily range): BP systolic 105–193; BP diastolic 58–98
[2018-12-01 02:07] LABS: GLYCOHEMOGLOBIN (HGB A1C) 9.5 % (4.8-5.6)
--- NOTE | 2018-12-01 04:00 | NUR ---
RECIEVED REPORT AND ASSUMED CARE AT 1900. BOOM STORAGE IN PLACE. VITAL SIGNS ARE STABLE. PT IS UP WITH STANDBY. PT DENIES ANY PAIN AT THIS TIME. ASSESSMENT COMPLETED, DISCUSSED PLAN OF CARE, PT UNDERSTANDS. BED LOCKED, ALARM ON, AND CALL LIGHT WITHIN REACH. FALL PRECAUTIONS IN PLACE. HOURLY ROUNDING DONE AND ALL NEEDS MET NURSING WILL CONTINUE TO MONITOR.
--- NOTE | 2018-12-01 17:53 | NUR ---
ASSUMED PT CARE REPORT RECEIVED FORM NURSE. PT IS AOX4 SR ON TECHNOLOGY METHODOLOGY CONSULTANT. NO PAIN. BLOOD SUGAR LOW 76 NO INSULIN GIVEN. INSULIN GIVEN AT 1600. PT ATE LUNCH AND DINNER. PT WENT DOWN TO ANNIE TODAY. POST ANNIE. PT IS STABLE. D4 1/2 NS DC'D. PT AMBULATES WITH WALKER. RA AND SATURATION IS ABOVE 95%. DESIREE CONTINUE TO MONITOR PT
--- NOTE | 2018-12-01 17:57 | TEE ---
[place] [address] TRANSESOPHAGEAL ECHOCARDIOGRAM Name: LENA ANGELA Room: [address] IN [facility]#: [id number] Admission: 11/29/18 Attend Phys: Destinee Ortiz, Discharge: Date of : 36 Date of Service: 12/01/18 1757 Report #: [id number] THIS REPORT FOR: //name// APPROVED REPORT Study performed: 12/01/2018 11:29:46 EXAM: Transesophageal Echocardiogram Patient Location: In-Patient Room #: [facility] Status: routine BSA: 2.18 HR: 97 bpm BP: 193/98 mmHg Rhythm: NSR Other Information Study Quality: Good Indications CVA/TIA Echo Enhancing Agent Indication: Rule out Shunt Agent(s) / Amount(s) Used: Agitated Saline 10 cc Procedure After obtaining informed consent, patient underwent transesophageal echo in the [employer]. Type of Sedation : Conscious Sedation Sedation was administered by Gabrielle Eason RN. Sedation start time: 1203 Case end Time: 1218 Sedation was achieved intravenously with: Versed (3) Fentanyl (50) Transesophageal probe was inserted and advanced into esophagus without difficulty by Porter Lomeli MD, FACC. Echo enhancement indication: R/O Septal defect. Echo enhancement agent administered: Agitated Saline The ANNIE was performed without complications. Throughout the procedure, the blood pressure, pulse oximetry, cardiac rhythm, and rate were monitored. The patient tolerated the procedure without adverse effects. Recovery from conscious sedation was uneventful and vital signs were stable. [place] [id number] TRANSESOPHAGEAL ECHOCARDIOGRAM Name: LENA ANGELA Room: [address]#: [id number] Admission: 11/29/18 Attend Phys: Destinee Ortiz, Discharge: Date of : 36 Date of Service: 12/01/18 1757 Report #: [id number] Left Ventricle The left ventricle is normal size. There is normal LV segmental wall motion. Mild concentric left ventricular hypertrophy. Left ventricular systolic function is normal. LVEF is 60-65%. Right Ventricle The right ventricle is normal size. The right ventricular systolic function is normal. Atria No thrombus is visualized in the left atrium or appendage. Interatrial septum is intact without evidence of ASD or PFO. The right atrium size is normal. Aortic Valve Moderate aortic valve sclerosis. Mild aortic regurgitation. There appears to be at least mild aortic stenosis. Mitral Valve The mitral valve is normal in structure. Trace mitral regurgitation. No evidence of mitral valve stenosis. Tricuspid Valve Tricuspid valve is not well visualized. Pulmonic Valve Pulmonic valve is not well visualized. Great Vessels The aortic root is normal in size. Pericardium There is no pericardial effusion. <Conclusion> The left ventricle is normal size. Mild concentric left ventricular hypertrophy. Left ventricular systolic function is normal. LVEF is 60-65%. No thrombus is visualized in the left atrium or appendage. Interatrial septum is intact without evidence of ASD or PFO. Moderate aortic valve sclerosis. [address] [address] TRANSESOPHAGEAL ECHOCARDIOGRAM Name: LENA ANGELA Room: [address]#: [id number] Admission: 11/29/18 Attend Phys: Destinee Ortiz, Discharge: Date of : 36 Date of Service: 12/01/181756 Report #: [id number] Mild aortic regurgitation. There appears to be at least mild aortic stenosis. Consider transthoracic echocardiogram to further define severity of aortic stenosis. <ELECTRONICALLY SIGNED> By: Porter Lomeli MD, FACC 12/01/181756 56 56 Porter Lomeli MD, FACC /INF
[2018-12-02 00:10] VITALS: BP 141/68
[2018-12-02 04:14] VITALS: BP 140/70
--- NOTE | 2018-12-02 04:55 | NUR ---
ASSUMED PATIENT CARE AT 1900. PATIENT ALERT AND ORIENTED TIMES FOUR. NO COMPLAINTS OF PAIN OR DISCOMFORT NOTED. PATIENT HAD A SHOWER AT APPROX 0100. UNABLE TO GO TO SLEEP UNTIL APPROX 0400. UP WITH STB AND WALKER. PATIENT IS HOPING TO GO HOME TODAY. TYPEWRITERS FUNCTIONAL TESTER AND HOURLY ROUNDING COMPLETED CHARTED.
[2018-12-02 05:40] LABS: HEMATOCRIT 43.4 % (42.0-52.0); HEMOGLOBIN 14.2 gm/dL (14.0-18.0); MCH 25.3 pg (26.0-34.0); MCHC 32.8 g/dL (28.0-37.0); MCV 77.3 fL (80.0-100.0); MPV 9.2 fl. (7.2-11.1); RBC 5.62 mil/uL (4.50-6.00); RDW-CV 14.3 % (10.5-14.5); WBC 5.1 thou/uL (4.0-11.0)
[2018-12-02 06:17] LABS: CALCIUM 8.8 mg/dL (8.5-10.1); CREATININE 1.2 mg/dL (0.6-1.3); POTASSIUM 4.3 mmol/L (3.5-5.1); TOTAL BILIRUBIN 0.2 mg/dL (<0.1-1.0); TOTAL PROTEIN 6.3 g/dL (6.4-8.2)
[2018-12-02 08:00] VITALS: BP 157/68
--- NOTE | 2018-12-02 13:27 | NUR ---
RUG HOOKER HAND SPOKE TO THE PATIENT TO DISCUSS DISCHARGE PLANNING NEEDS AND HH AT D/C. PATIENT IN AGREEMENT WITH HH WITH [facility]. RUG HOOKER HAND SPOKE TO CLAUDE WITH [facility] TO INFORM OF THE REFERRAL FOR HH, AND SHE CONFIRMS THAT [facility] IS ABLE TO ACCEPT THE PATIENT AT D/C. PATIENT MAY BE READY TO D/C TOMORROW AND [facility] IS AWARE. [facility] WILL NEED TO BE INFORMED AND PATIENT'S D/C, AND D/C ORDERS WILL NEED TO BE FAXED IF PATIENT D/C'S OVER THE WEEKEND. CM WILL REMAIN AVIALABLE TO ASSIST AND FOLLOW NEEDED. [facility] HH PHONE: [phone] FAX: [phone]
--- NOTE | 2018-12-02 15:35 | EKG ---
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 : 1940 Requested By: Destinee Ortiz Order Number: [id number] Reading MD: Mark Rai Measurements Intervals [place] Rate: 94 P: 49 MA: 155 QRS: 54 QRSD: 90 T: 37 QT: 373 QTc: 467 Interpretive Statements Sinus rhythm Baseline wander in lead(s) V5 Compared to ECG 11/29/2018 12:36:51 No significant changes Electronically Signed On 12-02-2018 15:35:42 GOLD CHARMER by Mark Rai [email or web address] <ELECTRONICALLY SIGNED> By: Mark Rai MD, [facility] 12/02/18 1535 0907 0907 Mark Rai MD, [facility] /EPI
[2018-12-02 16:35] VITALS: BP 132/66
--- NOTE | 2018-12-02 18:23 | NUR ---
ASSUMED PT CARE REPORT RECEIVED FORM NURSE. 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 VSS. COMPLAINS OF INCREASED WEAKNESS. BLOOD SUGAR 130. NIH SCORE 6 COMPLARED TO 1 YESTERDAY. NURSE NOTICED WEAKNESS IN ANTOINE EXTREMITIES AND ASYMETRY IN SMILE. CODE STROKE CALLED. CT OF HEAD ORDERED BY DR MCDANIEL HOSPITALIST. CT NEGATIVE. MRI ORDERED FOLLOW UP. RESULT ARE NEGATIVE WELL. PT SEEMS TO BE ANXIOUS AND WORRY ABOUT TINGLINGIN HIS FACE AND NECK. BUSPIRONE GIVEN ORDERED. PT IS DOING BETTER NOW. WORKED WITH PT AND OT. ATE DINER. CHANGES MADE IN HIS LEVEMIR DOSE FOR NIGHT TIME. PT IS STABLE WILL CONTINUE TO MONITOR
[2018-12-02 19:50] VITALS: BP 162/72
[2018-12-03 00:48] VITALS: BP 142/69
--- NOTE | 2018-12-03 03:20 | NUR ---
RECIEVED REPORT AND ASSUMED CARE AT 1900. ELECTROMECHANICAL EQUIPMENT ASSEMBLER IN PLACE. SYSTOLIC BP ELEVATED, OTHER THAN THAT VITAL SIGNS STABLE. PT UP ADLIB WITH WALKER. PT DENIES ANY PAIN AT THIS TIME. ASSESSMENT COMPLETED, DISCUSSED PLAN OF CARE AND PT UNDERSTANDS. BED LOCKED AND CALL LIGHT WITHIN REACH. FALL PRECAUTIONS IN PLACE. HOURLY ROUNDING DONE AND ALL NEEDS MET. NURSING WILL CONTINUE TO MONITOR.
[2018-12-03 04:00] VITALS: BP 133/66
[2018-12-03 08:00] VITALS: BP 148/67
[2018-12-03 12:00] VITALS: BP 186/81
[2018-12-03 16:00] VITALS: BP 134/65
--- NOTE | 2018-12-03 19:00 | NUR ---
ASSUMD PT CARE PT IS AOX4 SR ON MONITOR VSS. MONITORING BLOOD SUGAR PT AMBULATES WITH WALKER. ATE MEALS. GOOD APPETITE. NO BLOOD SUGAR ISSUE WILL CONTINUE TO MONITOR
[2018-12-03 19:40] VITALS: BP 142/57
[2018-12-04] VITALS: BP 130/68
--- NOTE | 2018-12-04 01:42 | NUR ---
RECIEVED REPORT AND ASSUMED CARE AT 1900. GRADER GREEN MEAT IN PLACE. DISTOLIC BP A LITTLE LOW, OTHER THAN THAT VITAL SIGNS STABLE. PT IS UP ADLIB WITH WALKER. PT DENIES ANY PAIN AT THIS TIME. ASSESSMENT COMPLETED, DISCUSSED PLAN OF CARE AND PT UNDERSTANDS. BED LOCKED AND CALL LIGHT WITHIN REACH. FALL PRECAUTIONS IN PLACE. HOURLY ROUNDING DONE AND ALL NEEDS MET. NURSING WILL CONTINUE TO MONITOR.
[2018-12-04 04:00] VITALS: BP 145/58
--- NOTE | 2018-12-04 07:05 | NUR ---
CHANGE OF SHIFT. BEDSIDE REPORT GIVEN PATIENT SEEN IN BED RESTING ASSUMED PATIENT CARE
[2018-12-04 08:00] VITALS: BP 145/71
[2018-12-04 12:30] VITALS: BP 156/73
[2018-12-04] MEDS ORDERED: ASPIRIN325 PO (12:30)
[2018-12-04] MEDS ORDERED: LANTUS100 UNIT/M SUBQ (12:30)
[2018-12-04] MEDS ORDERED: BUSPIRONE HCL5 MG PO (12:30)
[2018-12-04] MEDS ORDERED: PLAVIX 75 MG TA75 M1 PO (12:30)
[2018-12-04 14:30] VITALS: BP 156/73
[2018-12-04 15:27] VITALS: BP 156/73
--- NOTE | 2018-12-04 16:00 | NUR ---
PATIENT DISHARGED TO HOME WITH H/H ALL DC INSTRUCTIONS GIVEN, ACKNOWLEDGED, SIGNED COPIES GIVEN IV AND HEART MONITOR REMOVED AND PERSONAL BELONGINGS RETURNED ESCORTED DOWN TO ER TO TAXI CAB
[2018-12-05] MEDS ORDERED: LISINOPRIL20 MG PO (08:03)
[2018-12-05] MEDS ORDERED: TESSALON PERLE100 M1 PO (09:59)
--- NOTE | 2018-12-05 13:52 | CON ---
[address] [address] CONSULTATION Name: COREENLENA Gilbert Room: [address] IN ..#: [id number] Admission: 11/29/18 Attend Phys: Destinee Ortiz MD Discharge: 12/04/18 Date of : 38 Report #: [id number] THIS REPORT FOR: //name// CC: Zana Ortiz DATE OF SERVICE: 11/30/2018 HISTORY OF PRESENT ILLNESS: This is an 78-year-old male patient who was seen by me during the last admission. I reviewed those records. I talked to the Emergency Room physician who admitted this patient. The patient presents with the same symptoms, which he presented last time. He is complaining of paresthesias in all 4 extremities, especially in the upper extremities. It is a longstanding problem, it intermittently becomes better and intermittently becomes worse by itself. He does not know anything which makes it better or worse. They did workup in the Emergency Room and he had an MRI of the brain done, which demonstrated a small stroke in the right parietal occipital area. We had done workup in this patient last time and that had shown a right frontal area stroke, which has no correlation with his symptoms. Even present stroke will not correlate with his symptoms. His diabetes is uncontrolled and he will not take statin for hyperlipidemia. He did not even fill his prescriptions. 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 He has declined MRI in the past, but is more willing to do that. He said he is having some trouble with bladder and bowel. He had some constipation and some incontinence. Last time, we had checked a sed rate and it was only 3. He is a diabetic. He has hyperlipidemia. PAST MEDICAL HISTORY: Positive for stroke. He does have a pretty significant history of coronary artery disease in the past. FAMILY HISTORY: Negative for early age stroke. SOCIAL HISTORY: Indicates he does not smoke. PHYSICAL EXAMINATION: Indicates he is alert, responsive. His speech, concentration, fund of knowledge and memory is at his baseline. Cranial nerve examination is unremarkable. His neuromuscular examination is symmetrical except for reflexes, which are asymmetrical, but they were the same the last time, that is unchanged. He has no carotid bruit, no atrial fibrillation has been documented in this patient. No respiratory difficulty. His blood pressure is running about 150/70, pulse is 74, temperature is 97.6. LABORATORY DATA: His white count is normal. He has markedly elevated LDL. His creatinine is 1.6 and GFR is only 42. His blood sugar has been running [place] [address]s[place] [address] CONSULTATION Name: LENA ANGELA Room: [address]#: [id number] Admission: 11/29/18 Attend Phys: Destinee Ortiz MD Discharge: 12/04/18 Date of : 38 Report #: [id number] IMPRESSION: This is a complicated case. There are following problems which are going on with him: 1. He complained of paresthesias in the hands and just came to the hospital both times to be checked. Both times his MRI demonstrated a small stroke. Neither stroke correlate with his symptom of dizziness as well as paresthesias in all 4 extremities, especially in both upper extremities. However, we need to determine the etiology for his stroke and we need to determine the etiology of his paresthesias. As far as stroke is concerned, it is most likely because of uncontrolled vascular risk factors, which include diabetes and hyperlipidemia. He will not take a statin because somebody in [facility] at one time told him not to take statin. We will add a combination of aspirin and Plavix. I had talked to the ER, they gave him 75 mg and because of that I will just leave him on 75 mg. After 30 days we can switch him to Plavix only depending upon his condition at that time. It is unlikely that we will find anything in the heart, but the last time his echocardiogram had shown some aortic wall abnormalities and because of that I think we should do a ANNIE as well as 30 days event monitor to look for atrial fibrillation. We can also implant the monitor, but he does not want to do that. He does have some carotid disease. It does not look like it is hemodynamically significant on MRA and carotid Doppler. I would be very reluctant to do the CT angiogram with a GFR of only 42 and two tests showing what looks like nonsignificant disease at the moment. It will be very highly desirable if he can go on statin, but he will not do that. I will suggest checking some collagen vascular workup, which I ordered and I will suggest checking the spine because I think that is where his paraesthesia is coming from and he probably also has a carpal tunnel syndrome for which he needs an EMG as an outpatient. This is because he is diabetic. I had talked to the ER doctor last night. A total of 50 minutes time was spent taking care of this patient and majority of that time was spent counseling the patient on above matter as well as coordinating his care. <ELECTRONICALLY SIGNED> By: Marciano Ríos MD 12/05/18 1352 1015 1730Marciano Ríos MD /nt
--- NOTE | 2018-12-08 11:15 | EKG ---
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 12/08/18 1115 0831 0831 Porter Lomeli MD, FACC /EPI
== END 2018-12-04 16:00 | disposition home health service (06) | DRG 65 ==
LOC: M.ERS 12:23 → M.2W 16:40 → M.TBA-ER 16:40 → M.2W 17:31
PROVIDERS: Personal Emergency Response Attendant; Psychiatry & Neurology Neuromuscular Medicine; ADMIT Internal Medicine
PROC: B24BZZ4 Ultrasonography of Heart with Aorta, Transesophageal (ICD-10-PCS; principal; 2018-12-01)
DX: I63.9 Cerebral infarction, unspecified (principal); N17.9 Acute kidney failure, unspecified; K21.9 Gastro-esophageal reflux disease without esophagitis; F32.9 Major depressive disorder, single episode, unspecified; I25.10 Atherosclerotic heart disease of native coronary artery without angina pectoris; I48.91 Unspecified atrial fibrillation; E11.22 Type 2 diabetes mellitus with diabetic chronic kidney disease; I12.9 Hypertensive chronic kidney disease with stage 1 through stage 4 chronic kidney disease, or unspecified chronic kidney disease; N18.3 Chronic kidney disease, stage 3 (moderate); F43.10 Post-traumatic stress disorder, unspecified; I65.29 Occlusion and stenosis of unspecified carotid artery; F41.9 Anxiety disorder, unspecified; G56.00 Carpal tunnel syndrome, unspecified upper limb; E11.40 Type 2 diabetes mellitus with diabetic neuropathy, unspecified; M48.02 Spinal stenosis, cervical region; Z95.1 Presence of aortocoronary bypass graft; Z79.82 Long term (current) use of aspirin; Z79.899 Other long term (current) drug therapy

== ENCOUNTER 2018-12-05 07:56 | Emergency (ER) | payer OTHER ==
[~2018-12-05] VITALS: Ht 177.8 cm; Wt 99.8 kg
[~2018-12-05 07:56] MED LIST changes: +ASPIRIN325 PO; +BUSPIRONE HCL5 MG PO; +PLAVIX 75 MG TA75 M1 PO
[2018-12-05] MEDS ORDERED: LISINOPRIL20 MG PO (08:03)
[2018-12-05 08:25] LABS: HEMOGLOBIN 15.1 gm/dL (14.0-18.0); MCH 25.7 pg (26.0-34.0); MCHC 32.9 g/dL (28.0-37.0); MCV 77.9 fL (80.0-100.0); MPV 9.1 fl. (7.2-11.1); RBC 5.9 mil/uL (4.50-6.00); RDW-CV 14.4 % (10.5-14.5); WBC 7.6 thou/uL (4.0-11.0)
[2018-12-05 08:37] LABS: ANION GAP 8 mmol/L (7-16); BUN 29 mg/dL (7-18); CALCIUM 9.1 mg/dL (8.5-10.1); CHLORIDE 101 mmol/L (98-107); CO2 26 mmol/L (21-32); CREATININE 1.6 mg/dL (0.6-1.3); GLUCOSE 176 mg/dL (70-99); POTASSIUM 4.7 mmol/L (3.5-5.1); SODIUM 135 mmol/L (136-145); TROPONIN-I LEVEL <0.06 ng/mL (<0.06)
[2018-12-05] MEDS ORDERED: TESSALON PERLE100 M1 PO (09:59)
[2018-12-05 10:13] VITALS: BP 147/75
== END 2018-12-05 10:14 | disposition home or self-care (01) ==
LOC: M.ERS 07:56
PROVIDERS: Emergency Medicine Emergency Medical Services
DX: I10 Essential (primary) hypertension (principal); K21.9 Gastro-esophageal reflux disease without esophagitis; F32.9 Major depressive disorder, single episode, unspecified; E11.9 Type 2 diabetes mellitus without complications; Z86.73 Personal history of transient ischemic attack (TIA), and cerebral infarction without residual deficits; Z95.1 Presence of aortocoronary bypass graft; Z79.4 Long term (current) use of insulin

== ENCOUNTER 2018-12-09 12:51 | Inpatient (IN) | payer OTHER ==
[~2018-12-09] VITALS: Ht 177.8 cm; Wt 102.0 kg
--- NOTE | ~2018-12-09 | CON ---
[address] [address] CONSULTATION Name: COREENLENA Gilbert Room: [address] IN .R.#: [id number] Admission: 12/09/18 Attend Phys: Fuentes Curry MD Discharge: Date of : 38 Report #: [id number] THIS REPORT FOR: //name// CC: Fuentes Calvillo Warden INPATIENT CONSULTATION REQUESTING PHYSICIAN: Fuentes Curry MD PRIMARY CARE PHYSICIAN: Dr. Morales CHIEF COMPLAINT: Preop evaluation. HISTORY OF PRESENT ILLNESS: The patient is an 78-year-old man who presented to Emergency Department with bilateral facial numbness and was found to have a high-grade stenosis of his right carotid artery to the degree of greater than 70% on the right side. I am asked to see him because he has a history of cardiac disease as well as valvular heart disease. It sounds like he has aortic valve stenosis and has had a prior 3-vessel CABG. He admits he has not seen his employment specialist in several years. He cannot recall who it was, but he had his heart surgery in 2005 in [place]. He denies palpitations or heart racing and had been doing well from a cardiac standpoint without exertional chest pressure or shortness of breath, neck or jaw discomfort. He presents with a sinus rhythm with normal ST segments. He had not been on aspirin prior to presentation. PAST MEDICAL HISTORY: He has a history of 3-vessel CABG in 2005. He reports he has never had an AL. He has hypertension, hyperlipidemia, diabetes mellitus. CURRENT MEDICATIONS: Include aspirin, Plavix, insulin, BuSpar, lisinopril 20 mg daily. He is not on a statin. SOCIAL HISTORY: He is not smoking. He has no documented history of significant ethanol history. FAMILY HISTORY: Positive for heart disease. REVIEW OF SYSTEMS: GASTROINTESTINAL: No nausea, vomiting, hematemesis or melena. GENITOURINARY: No dysuria or hematuria. NEUROLOGIC: Denies headaches. Positive blurry vision. Positive facial numbness. HEMATOLOGIC: No anemia or bleeding disorders. CARDIOVASCULAR: No chest pain, no shortness of breath, no orthopnea, [place] [address] CONSULTATION Name: LENA ANGELA Room: [address]#: [id number] Admission: 12/09/18 Attend Phys: Fuentes Curry MD Discharge: Date of : 38 Report #: [id number] palpitations. SKIN: No rashes. RENAL: No history of kidney failure. Does have chronic renal insufficiency. His creatinine is 2.1. LABORATORY DATA: MRI of the brain shows chronic changes. Carotid Doppler as above shows greater than 70% stenosis on the right internal carotid artery. Hemoglobin is 13.0, white blood cell count 6.0, platelet count is 197. Sodium is 135, potassium is 4.1, BUN is 47, creatinine is 2.1. LDL cholesterol is 145, total cholesterol is 209, HDL is 34. IMPRESSION: 1. Transient ischemic attack. He is being scheduled for a carotid endarterectomy. In addition, he is on aggressive blood pressure and antiplatelet therapy. We will start a statin. 2. Status post coronary artery bypass graft. I have arranged for a pharmacologic stress test and preoperative evaluation. The patient has functional limitations and relays a functional capacity of less than 3 METs. He is walking with a walker. 3. Aortic valve stenosis. This is based on the physical exam findings. I have ordered an echocardiogram for further delineation. 4. Hypertension. This has improved. 5. Hyperlipidemia. We will start him on a statin. By: 1202 0147Orion Maher MD, FACC /nt
[~2018-12-09 12:51] MED LIST changes: +LISINOPRIL20 MG PO; +TESSALON PERLE100 M1 PO
[2018-12-09 13:02] VITALS: BP 204/84
[2018-12-09 13:22] LABS: ABSOLUTE BASOPHILS 0.1 thou/uL (0.0-0.2); ABSOLUTE EOSINOPHILS 0.1 thou/uL (0.0-0.7); ABSOLUTE LYMPHOCYTES 1.2 thou/uL (0.8-5.3); ABSOLUTE MONOCYTES 0.6 thou/uL (0.0-1.2); ABSOLUTE NEUTROPHILS 5.1 thou/uL (1.6-8.1); BASOPHILS 0.8 %; EOSINOPHILS 0.7 %; HEMATOCRIT 46.7 % (42.0-52.0); HEMOGLOBIN 15.6 gm/dL (14.0-18.0); LYMPHOCYTES 17.4 %; MCHC 33.3 g/dL (28.0-37.0); MCV 77.9 fL (80.0-100.0); MONOCYTES 8.5 %; MPV 9.3 fl. (7.2-11.1); NUCLEATED RBCS 0 /100WBC; PLATELET COUNT* 211 thou/uL (150-400); POLYS 72.6 %; RDW-CV 14.5 % (10.5-14.5)
[2018-12-09 13:29] LABS: PROTIME 10.7 Seconds (9.20-11.50)
[2018-12-09 13:38] LABS: ALBUMIN 3.6 g/dL (3.4-5.0); ALKALINE PHOSPHATASE 75 U/L (46-116); ANION GAP 10 mmol/L (7-16); BUN 34 mg/dL (7-18); CALCIUM 9.3 mg/dL (8.5-10.1); CHLORIDE 101 mmol/L (98-107); CO2 23 mmol/L (21-32); CREATININE 1.3 mg/dL (0.6-1.3); GLUCOSE 226 mg/dL (70-99); POTASSIUM 4.6 mmol/L (3.5-5.1); SGOT 22 U/L (15-37); SGPT 36 U/L (30-65); SODIUM 134 mmol/L (136-145); TOTAL BILIRUBIN 0.5 mg/dL (<0.1-1.0); TOTAL PROTEIN 7.3 g/dL (6.4-8.2); TROPONIN-I LEVEL <0.06 ng/mL (<0.06)
--- NOTE | 2018-12-09 15:47 | EKG ---
[place] [address] ELECTROCARDIOGRAM REPORT Name: LENA ANGELA Ofelia Room: [place] [address] ADM IN [facility].#: [id number] Admission: 12/09/18 Attend Phys: Fuentes Curry MD Discharge: Date of : 38 Report #: [id number] THIS REPORT FOR: //name// [facility] ED Test Date: 2018-12-09 Test Time: 12:55:53 Pat Name: LENA ANGELA Department: Room: [facility] Gender: M Corrections Sergeant: Payton FERNANDEZ : 1940 Requested By: Cedric García Order Number: [id number] MD: Gildardo Fischer Measurements Intervals [place] Rate: 105 P: 42 AR: 160 QRS: 69 QRSD: 89 T: 27 QT: 359 QTc: 475 Interpretive Statements Sinus tachycardia Probable left atrial enlargement Borderline ST depression, anterolateral leads Compared to ECG 12/02/2018 09:07:50 Sinus rhythm no longer present Electronically Signed On 12-09-2018 15:47:04 MANUFACTURING TEAM MEMBER by Gildardo Fischer [email or web address] <ELECTRONICALLY SIGNED> By: Gildardo Fischer MD, FAC 12/09/18 1547 1255 1255 Gildardo Fischer MD, [facility] /EPI
[2018-12-09 17:35] VITALS: BP 131/65
[2018-12-09 19:00] VITALS: BP 136/68
[2018-12-10] VITALS: BP 123/64
[2018-12-10 02:06] LABS: GLYCOHEMOGLOBIN (HGB A1C) 9.3 % (4.8-5.6)
[2018-12-10 04:00] VITALS: BP 110/56
[2018-12-10 05:36] LABS: ABSOLUTE BASOPHILS 0.1 thou/uL (0.0-0.2); ABSOLUTE EOSINOPHILS 0.1 thou/uL (0.0-0.7); ABSOLUTE LYMPHOCYTES 1.5 thou/uL (0.8-5.3); ABSOLUTE MONOCYTES 0.6 thou/uL (0.0-1.2); ABSOLUTE NEUTROPHILS 3.7 thou/uL (1.6-8.1); BASOPHILS 0.8 %; HEMATOCRIT 42.6 % (42.0-52.0); HEMOGLOBIN 13.9 gm/dL (14.0-18.0); LYMPHOCYTES 24.5 %; MCH 25.3 pg (26.0-34.0); MCHC 32.6 g/dL (28.0-37.0); MCV 77.8 fL (80.0-100.0); MONOCYTES 9.8 %; MPV 9.7 fl. (7.2-11.1); NUCLEATED RBCS 0 /100WBC; PLATELET COUNT* 197 thou/uL (150-400); POLYS 62.9 %; RBC 5.48 mil/uL (4.50-6.00); RDW-CV 14.2 % (10.5-14.5)
[2018-12-10 05:58] LABS: ANION GAP 8 mmol/L (7-16); BUN 41 mg/dL (7-18); CALCIUM 8.9 mg/dL (8.5-10.1); CHLORIDE 104 mmol/L (98-107); CO2 26 mmol/L (21-32); CREATININE 1.6 mg/dL (0.6-1.3); GLUCOSE 185 mg/dL (70-99); POTASSIUM 4.1 mmol/L (3.5-5.1); SODIUM 138 mmol/L (136-145)
[2018-12-10 06:13] LABS: CHOLESTEROL 209 mg/dL (<200); HDL CHOLESTEROL 34 mg/dL (>40); LDL CHOLESTEROL 145 mg/dL (<100); TC:HDL 6.1 Ratio (Not establshd); TRIGLYCERIDE 153 mg/dL (<150); VLDL 31 mg/dL (<40)
[2018-12-10 06:41] LABS: SERUM ASSESSMENT Clear
[2018-12-10 08:00] VITALS: BP 120/62
[2018-12-10 11:31] VITALS: BP 132/68
[2018-12-10 15:40] VITALS: BP 132/74
[2018-12-10 19:40] VITALS: BP 105/57
[2018-12-11] VITALS: BP 121/72
[2018-12-11 04:00] VITALS: BP 106/52
[2018-12-11 06:34] LABS: CALCIUM 8.9 mg/dL (8.5-10.1); CREATININE 2.1 mg/dL (0.6-1.3); POTASSIUM 4.1 mmol/L (3.5-5.1)
[2018-12-11 08:00] VITALS: BP 130/67
[2018-12-11 11:30] VITALS: BP 129/64
[2018-12-11 15:26] VITALS: BP 108/64
[2018-12-11 19:40] VITALS: BP 126/61
[2018-12-12] VITALS: BP 123/60
[2018-12-12 04:00] VITALS: BP 184/81
[2018-12-12 04:54] LABS: ABSOLUTE BASOPHILS 0.1 thou/uL (0.0-0.2); ABSOLUTE EOSINOPHILS 0.1 thou/uL (0.0-0.7); ABSOLUTE LYMPHOCYTES 0.7 thou/uL (0.8-5.3); ABSOLUTE MONOCYTES 0.5 thou/uL (0.0-1.2); BASOPHILS 0.8 %; EOSINOPHILS 1.4 %; HEMATOCRIT 42.1 % (42.0-52.0); HEMOGLOBIN 13.9 gm/dL (14.0-18.0); LYMPHOCYTES 10.5 %; MCH 25.7 pg (26.0-34.0); MCHC 33.1 g/dL (28.0-37.0); MCV 77.8 fL (80.0-100.0); MONOCYTES 7.4 %; MPV 9.6 fl. (7.2-11.1); NUCLEATED RBCS 0 /100WBC; PLATELET COUNT* 175 thou/uL (150-400); POLYS 79.9 %; RBC 5.41 mil/uL (4.50-6.00); RDW-CV 14.3 % (10.5-14.5); WBC 6.3 thou/uL (4.0-11.0)
[2018-12-12 05:14] LABS: CALCIUM 8.5 mg/dL (8.5-10.1); CREATININE 1.7 mg/dL (0.6-1.3); POTASSIUM 4.4 mmol/L (3.5-5.1)
[2018-12-12 08:00] VITALS: BP 143/70
[2018-12-12 12:00] VITALS: BP 111/60
--- NOTE | 2018-12-12 12:50 | CON ---
[address] [address] CONSULTATION Name: LENA ANGELA Room: [address] IN .R.#: [id number] Admission: 12/09/18 Attend Phys: Fuentes Curry MD Discharge: Date of : 38 Report #: [id number] THIS REPORT FOR: //name// CC: Fuentes Morales HISTORY OF PRESENT ILLNESS: The patient is an 78-year-old male who tells me that yesterday he experienced numbness of the face and numbness in both arms. His daughter also noticed that he had drooping of the left side of his face. The patient came to the Emergency Room. In the Emergency Room, his blood pressure was 204/84. The patient tells me that he does monitor his pressure at home, but when he takes it, sometimes it is high and sometimes it is normal. He still has numbness of the face today. The patient has had an MRI of the head. There is no evidence of new stroke. He was admitted 2 weeks ago or perhaps 4 weeks ago with stroke and at that time, the patient was seen by Dr. Ríos on 11/16/2018. Dr. Ríos's impression was that the etiology for the episode was unclear. However, when the patient was seen at the beginning of November for this episode, he was seen by Dr. Ríos and was diagnosed with hypertension as a cause for dizziness. The patient was then admitted approximately 2 weeks ago and then on this third admission. PAST MEDICAL HISTORY: Hypertension, anxiety, diabetes. PAST SURGICAL HISTORY: Coronary artery bypass graft, right rotator cuff repair. MEDICATIONS AT HOME: Lisinopril 20 mg daily, tamsulosin 0.4 mg b.i.d., Neurontin 300 mg t.i.d., trazodone 150 mg at bedtime, NovoLog 12 units prior to meals, Colace 100 mg b.i.d. ALLERGIES: None. PHYSICAL EXAMINATION: VITAL SIGNS: Temperature 36.6, pulse rate 73, respiratory rate 16, blood pressure 132/68, bedside pulse oximetry 94% on room air. NEUROLOGIC: Cranial nerves 2-12 are grossly intact with the exception of a mild left facial droop. Motor exam demonstrates symmetrical strength in all 4 extremities with tone and bulk normal. Reflexes are trace. Plantar responses are flexor. Coordination demonstrates no evidence of dysmetria. Gait was not tested. LABORATORY DATA: Hematology: White blood cell count 6; hemoglobin 13.9; hematocrit 42.6; MCV 77.8; platelet count 197,000. Chemistry: Sodium 138, potassium 4.1, chloride 104, carbon dioxide 26, BUN 41, creatinine 1.6, GFR 42, glucose 185. Hemoglobin A1c 9.3. IMAGING: MRI of the head demonstrates no acute abnormalities, [place] [address] CONSULTATION Name: LENA ANGELA Room: [address] IN [facility]#: [id number] Admission: 12/09/18 Attend Phys: Fuentes Curry MD Discharge: Date of : 38 Report #: [id number] microvascular ischemic changes were noted. Carotid ultrasound demonstrates 70% stenosis of the right internal carotid artery. IMPRESSION AND PLAN: This patient has 70% stenosis of the right internal carotid artery. He has been seen by Vascular Surgery, who would like for the patient to have a CTA of the neck once his creatinine improves. I explained to the patient that having numbness and tingling in both sides of your face and in both arms is not consistent with a stroke. He does have intermittently uncontrolled hypertension and his diabetic control is not as good as it should be either, his hemoglobin A1c is 9.6. At this point, I would continue aspirin and Plavix and have the patient cleared by Cardiology as per the vascular surgeon's recommendations. At this point, I have no further suggestions. I thank you for your kind referral of the patient. <ELECTRONICALLY SIGNED> By: Patricia Mina DO 12/12/18 1250 1325 0258Patricia Mina DO /nt
[2018-12-12 16:00] VITALS: BP 116/65
--- NOTE | 2018-12-12 17:01 | CARDNUC ---
[place] [address] CARDIAC NUCLEAR IMAGING REPORT Name: LENA ANGELA Room: [address] IN [facility]#: [id number] Admission: 12/09/18 Attend Phys: Fuentes Curry, Discharge: Date of : 36 Date of Service: 12/12/18 1701 Report #: [id number] THIS REPORT FOR: //name// APPROVED REPORT Study performed: 12/11/2018 12:33:00 Indication: Dyspnea, Pre Op Patient Location: In-Patient Stress Tech: Babita Aguirre Stress Nurse: Cynthia Sifuentes RN NM Tech:RAMON Bender Ht: 5 ft 10 in Wt: 213 lbs BSA: 2.14 m2 HR: 94 bpm BP: 146/73 mmHg BMI: 30.55 Medical History Medical History: Cabg, CAD, Hyperlipidemia, HTN, DM Medications: ASA, Humalog, Lovenox, Lantus, Lopressor, Plavix, Lipitor, Hydralazine, Labetalol Allergies: NKDA Cardiac Risk Factors: Hyperlipidemia, HTN, DM, Family Hx Previous Cardiac Procedures: CABG 2005 Pretest Chest Pain Characteristics: none Meds Held (24 hrs): BETA Indigo and Nitrate Nurses Note: Pt got SOA, lightheaded, nausea, and tingling in head and feet during test. Resting Data Rest SPECT myocardial perfusion imaging was performed in supine position 30 minutes following the intravenous injection of 10.9 mCi of Tc-99m Sestamibi. Time of rest injection: 13:00 The images were gated to evaluate regional wall motion and calculate left ventricular ejection fraction. Administration Route: IV Administration Site: Right Arm Pharmacologic Stress Pharmacologic stress test was performed by injecting Regadenoson 0.4 mg IV push over 10-15 seconds immediately followed by the intravenous injection of 33.4 mCi of Tc-99m Sestamibi. Time of stress injection: 14:50 Administration Route: [place] [address] CARDIAC NUCLEAR IMAGING REPORT Name: LENA ANGELA Room: [address]#: [id number] Admission: 12/09/18 Attend Phys: Fuentes Curry, Discharge: Date of : 38 Date of Service: 12/12/18 1701 Report #: [id number] Administration Site: Right Arm Heart Rate at time of stress injection: 121 bpm. Gated Stress SPECT was performed 45 minutes after stress injection. The images were gated to evaluate regional wall motion and calculate left ventricular ejection fraction. Prone imaging was performed. Stress Test Details Stress Test: Pharmacologic stress testing performed using 0.4 mg of regadenoson per 5 mL given IV over 10 seconds. Reason for pharmacologic stress test: lightheaded. HR Max Heart Rate (APMHR): 140 bpm Resting HR: 94 bpm Target HR (85% APMHR): 119 bpm Max HR Achieved: 124 bpm % of APMHR: 88 Recovery HR: 109 bpm HR response to stress: Normal HR response to stress BP Resting BP: 146/73 mmHg Max BP: 132/62 mmHg Recovery BP: 142/64 mmHg BP response to stress: Normal blood pressure response to stress. ECG Resting ECG: Sinus Rhythm Stress ECG: Sinus Tachycardia ST Change: None Arrhythmia: None Recovery ECG: Sinus Rhythm Recovery ST Change: None Recovery Arrhythmia: None Clinical Reason for Termination: Completed protocol The patient had no significant symptoms with Lexiscan infusion. Stress ECG Conclusion The baseline 12-lead EKG show sinus rhythm without ST or T wave abnormality. EKGs during and post Lexiscan infusion show sinus rhythm with no significant ST or T wave changes when compared baseline. There were no stress[place] [address] CARDIAC NUCLEAR IMAGING REPORT Name: LENA ANGELA Room: [address]#: [id number] Admission: 12/09/18 Attend Phys: Fuentes Curry, Discharge: Date of : 36 Date of Service: 12/12/18 1701 Report #: [id number] Study Quality Study: Good Artifact: Mild Diaphragmatic artifact Study Data At rest, the left ventricular ejection fraction was 61%.. Post stress, the left ventricular ejection was 77%.. TID = 0.85. Perfusion Images obtained at rest and post stress in the supine position shows mild photopenia in the inferior wall that resolves completely with post stress prone imaging suggesting diaphragmatic attenuation artifact. No other significant fixed or reversible defects were identified. Wall Motion LV systolic function is preserved with an ejection fraction of 56%. There is a septal wall motion abnormality noted consistent with prior bypass procedure. Nuclear Conclusion ECG Findings: negative for ischemia Clinical Findings: negative for ischemia Nuclear Findings: negative for ischemia Exercise Capacity: not assessed Left Ventricular Function: preserved Risk Study: low Myocardial perfusion images show no defect to suggest infarct or ischemia. Left ventricular systolic function is well-preserved on gated studies. This is a low risk study. <Conclusion> The baseline 12-lead EKG show sinus rhythm without ST or T wave abnormality. EKGs during and post Lexiscan infusion show sinus rhythm with no significant ST or T wave changes when compared baseline. There were no stress-induced arrhythmias. <ELECTRONICALLY SIGNED> By: Porter Lomeli MD, FACC 12/12/181700 00 00 Porter Lomeli MD, FACC /INF
--- NOTE | 2018-12-12 17:02 | CON ---
[address] [address] CONSULTATION Name: COREEN,LENA Ofelia Room: [address] IN .R.#: [id number] Admission: 12/09/18 Attend Phys: Fuentes Curry MD Discharge: Date of : 38 Report #: [id number] THIS REPORT FOR: //name// CC: Fuentes Calvillo Andrew DATE OF SERVICE: 12/10/2018 VASCULAR SURGERY CONSULTATION REQUESTING PHYSICIAN: Fuentes Curry MD REASON FOR CONSULTATION: Carotid stenosis. HISTORY OF PRESENT ILLNESS: The patient is a very pleasant 78-year-old white male who presented with left facial droop and facial paresthesia. He has had tingling in both hands of unclear etiology. He was admitted with a suspicion for TIA. His symptoms have subsequently resolved. He also noted some difficulty with speech, but this has resolved. He denies any vision changes. He denies any prior symptoms or strokes. REVIEW OF SYSTEMS: A 12-point review of systems was reviewed and negative as per HPI. PAST MEDICAL HISTORY: Significant for acute renal insufficiency, dizziness, hypertension, TIA, nausea, coronary artery disease, hypertension, GERD, depression, diabetes, posttraumatic stress disorder. PAST SURGICAL HISTORY: Significant for CABG back in 2005, rotator cuff surgery. SOCIAL HISTORY: The patient denies alcohol, tobacco or drug use. FAMILY HISTORY: Noncontributory due to age. HOME MEDICATIONS: Include Plavix, aspirin, buspirone, Lantus. ALLERGIES: No known drug allergies. PHYSICAL EXAMINATION: GENERAL: The patient is in no acute distress. He is alert and oriented. VITAL SIGNS: Afebrile. Vital signs stable. HEENT: Normocephalic, atraumatic. NECK: Supple. HEART: Regular. LUNGS: Clear. ABDOMEN: Soft, nontender, [place] [address] CONSULTATION Name: LENA ANGELA Room: [address]#: [id number] Admission: 12/09/18 Attend Phys: Fuentes Curry MD Discharge: Date of : 38 Report #: [id number] EXTREMITIES: Warm and well perfused. NEUROLOGIC: Moves all extremities. Normal strength and sensation. Cranial nerves 2-12 intact. No facial droop at this time. Normal speech pattern. I reviewed his ultrasound and I agreed with the assessment of likely 70% stenosis of right internal carotid artery. ASSESSMENT: Significant carotid disease, right with transient ischemic attack symptoms. RECOMMENDATIONS: 1. I would like to obtain a CT angiogram to assess disease further. His creatinine is 1.6 today. We will continue hydration and recheck creatinine tomorrow and likely obtain CT angiogram at that time. 2. We will ask for cardiology evaluation for preoperative clearance. 3. Likely proceed with right carotid endarterectomy in the near future. If he develops any further symptoms such as crescendo TIAs, we will proceed with more emergent carotid endarterectomy as needed. Thank you very much for involving me in the care of this very pleasant patient. Please recall me for any questions or concerns with assessment and plan. <ELECTRONICALLY SIGNED> By: Duglas Blanco DO 12/12/18 1702 1309 [id number] Giles MD /nt
[2018-12-12 20:08] VITALS: BP 141/66
[2018-12-13] VITALS (11 sets, daily range): BP systolic 91–149; BP diastolic 50–70
[2018-12-13 07:03] LABS: ABSOLUTE LYMPHOCYTES 0.9 thou/uL (0.8-5.3); ABSOLUTE MONOCYTES 0.8 thou/uL (0.0-1.2); EOSINOPHILS 0.9 %; HEMATOCRIT 40.8 % (42.0-52.0); HEMOGLOBIN 13.2 gm/dL (14.0-18.0); LYMPHOCYTES 19.6 %; MCH 25.5 pg (26.0-34.0); MCHC 32.4 g/dL (28.0-37.0); MCV 78.7 fL (80.0-100.0); MONOCYTES 15.8 %; MPV 9.8 fl. (7.2-11.1); NUCLEATED RBCS 0 /100WBC; PLATELET COUNT* 166 thou/uL (150-400); POLYS 62.7 %; RBC 5.19 mil/uL (4.50-6.00); RDW-CV 14.5 % (10.5-14.5); WBC 4.8 thou/uL (4.0-11.0)
[2018-12-13 07:18] LABS: ALBUMIN 2.7 g/dL (3.4-5.0); CALCIUM 8.3 mg/dL (8.5-10.1); CREATININE 1.5 mg/dL (0.6-1.3); POTASSIUM 4.3 mmol/L (3.5-5.1); TOTAL BILIRUBIN 0.3 mg/dL (<0.1-1.0); TOTAL PROTEIN 5.7 g/dL (6.4-8.2)
[2018-12-14] VITALS (16 sets, daily range): BP systolic 84–134; BP diastolic 47–62
[2018-12-14 04:59] LABS: ABSOLUTE LYMPHOCYTES 0.8 thou/uL (0.8-5.3); ABSOLUTE MONOCYTES 0.7 thou/uL (0.0-1.2); BASOPHILS 0.3 %; HEMATOCRIT 39.1 % (42.0-52.0); HEMOGLOBIN 12.8 gm/dL (14.0-18.0); MCH 25.7 pg (26.0-34.0); MCHC 32.6 g/dL (28.0-37.0); MCV 78.7 fL (80.0-100.0); MONOCYTES 9.9 %; MPV 9.7 fl. (7.2-11.1); NUCLEATED RBCS 0 /100WBC; PLATELET COUNT* 167 thou/uL (150-400); POLYS 79.8 %; RBC 4.97 mil/uL (4.50-6.00); RDW-CV 14.9 % (10.5-14.5); WBC 7.6 thou/uL (4.0-11.0)
[2018-12-14 05:18] LABS: CALCIUM 8.3 mg/dL (8.5-10.1); CREATININE 1.8 mg/dL (0.6-1.3); POTASSIUM 5.3 mmol/L (3.5-5.1)
--- NOTE | 2018-12-14 07:49 | OP ---
[address] [address] OPERATIVE REPORT Name: LENA ANGELA Room: [address] IN .R.#: [id number] Admission: 12/09/18 Attend Phys: Fuentes Curry MD Discharge: Date of : 38 Report #: [id number] THIS REPORT FOR: //name// CC: Fuentes Morales DATE OF SERVICE: 12/13/2018 PREOPERATIVE DIAGNOSIS: Asymptomatic high-grade right carotid artery stenosis. POSTOPERATIVE DIAGNOSIS: Asymptomatic high-grade right carotid artery stenosis. OPERATION: 1. Right carotid endarterectomy with bovine pericardial patch angioplasty. 2. Completion intraoperative duplex. SURGEON: Duglas Blanco DO. RETAIL OPERATIONS SPECIALIST: GABY Johnson. ANESTHESIA: General. ESTIMATED BLOOD LOSS: 150 mL. FLUIDS: 800 mL crystalloid. URINE OUTPUT: None. SPECIMENS: Right carotid plaque. IMPLANTS: 0.8 x 8 bovine pericardial patch on right carotid artery. FINDINGS: He had heavily calcified about 70% stenosis in the distal right internal carotid artery. This endarterectomized well. Completion intraoperative duplex demonstrated no intraluminal defects. He had good continuous diastolic flow through the internal carotid and good flow through the external carotid artery. CLINICAL HISTORY: The patient is an 78-year-old man who is found to have asymptomatic high-grade carotid stenosis. He is recommended for carotid endarterectomy for stroke risk reduction. DETAILS OF PROCEDURE: After informed consent was obtained, the patient was taken to the operating room and placed on the OR bed on the supine position. He was administered general anesthesia by the anesthesia team. Right neck was prepped and draped in usual sterile fashion. [place] [address] OPERATIVE REPORT Name: LENA ANGELA Room: [address] IN R.#: [id number] Admission: 12/09/18 Attend Phys: Fuentes Curry MD Discharge: Date of : 38 Report #: [id number] identifying correct patient and procedure. Next, a longitudinal incision made along the anterior border of sternocleidomastoid. Dissection was carried down through skin and subcutaneous tissues, both sharp and electrocautery. The carotid sheath was entered. Facial vein was identified, was ligated between 2-0 silk ties and divided. I then circumferentially dissected out the common carotid artery, controlled this with an umbilical tape and Rumel tourniquet. I then dissected out the external carotid artery, controlled this with a Silastic vessel loop in Steele fashion. I then dissected out the distal internal carotid artery. This was controlled with Silastic vessel loop as well. I then administered 8000 units of intravenous heparin. This allowed to circulate for 3 minutes and then sequentially clamped the internal followed by the external common carotid arteries. I made a longitudinal arteriotomy extended with Steele scissors and then normal internal carotid and common carotid artery. I then placed a 10-[place] shunt in standard fashion. Doppler interrogation confirmed flow through the shunt. I then performed endarterectomy with eversion endarterectomy of the external carotid artery until good distal endpoint in the internal carotid artery. I then freed up all intimal debris. Flushed with heparinized saline and performed a patch angioplasty with a bovine pericardial patch with running 6-0 Prolene suture. Prior to completion of the suture line, the shunt was removed and the arteries were reclamped. I performed backbleeding. Flushed again with heparinized saline, completed the patch, restored flow first up the external carotid artery and after several heartbeats of the internal carotid artery. I then performed completion intraoperative duplex, which demonstrated good flow through the external, continuous diastolic flow through the internal carotid artery with no intraluminal defects seen. I then partially reversed the heparin with 50 mg protamine. Once hemostasis was ensured, the wound was irrigated with antibiotic solution. It was closed in layers with 2-0 and 3-0 Vicryl, skin was infiltrated with Marcaine anesthetic. Skin was closed with 4-0 Monocryl and Dermabond was applied. All sponge, sharp instrument counts reported as correct x 2. He tolerated the procedure well. He was extubated in the operating room, neurologically intact, moving upper and lower extremities appropriately to command. He was taken to the recovery room in stable condition. <ELECTRONICALLY SIGNED> By: Duglas Blanco DO 12/14/18 0749 1326 1518Ajesus alberto Blanco DO /nt
[2018-12-14] MEDS ORDERED: LOPRESSOR25 PO (08:16)
[2018-12-14] MEDS ORDERED: LIPITOR80 MG PO (08:16)
[2018-12-14] MEDS ORDERED: ASA81BEC PO (08:16)
[2018-12-14] MEDS ORDERED: NORCO 5-325 TA1 EACH PO ×2 (08:16→15:01)
--- NOTE | 2018-12-16 12:05 | PATH ---
[facility] [address] [facility] [place] [address] PATHOLOGY RPT PROCEDURE Name: LENA FONG Room: [address] IN .R.#: [id number] Admission: 12/09/18 Date of : 38 Discharge: 12/14/18 Report #: [id number] Path Case #: [id number] [facility] Accession Number: [id number] . 01 Material submitted: . PLAQUE, RIGHT CAROTID . 01 Clinical history: . Right carotid stenosis . 02 Diagnosis: Plaque, right carotid: - Fibrointimal atherosclerotic plaque with marked calcification. . (ION:mml; 12/15/2018) QLM/12/15/2018 . 02 Electronically signed: . Ramin Main MD, Pathologist NPI- [id number] . 01 Gross description: . The specimen is received in formalin, labeled "Lena Fong, plaque right carotid", are two previously opened tracy-yellow, tubular structures and its fragments measuring 2.5 x 2.0 x 0.7 cm in aggregate. The smaller tubular segment is markedly calcified within the larger intimal thickening. Manager Unix tissue is submitted in A1 after decalcification. (SWS; 12/13/2018) SHS/SHS . 02 Pathologist provided ICD-10: I65.21 . 02 CPT . 685631, 563523 Specimen Comment: A courtesy copy of this report has been sent to Specimen Comment: [phone], , . Specimen Comment: Report sent to ,DR BOOTHE / DR GARDNER Specimen Comment: A duplicate report has been generated due to demographic updates. Performed at: [address], [place] [id number] MD Kevin Lipscomb MD Phone: [phone] Performed at: [address] [id number] [place] [address] PATHOLOGY RPT PROCEDURE Name: LENA FONG Room: [address] IN M.R.#: [id number] Admission: 12/09/18 Date of : 36 Discharge: 12/14/18 Report #: [id number] Path Case #: [id number] MD Ramin Main MD Phone: [phone]
== END 2018-12-14 18:45 | disposition home or self-care (01) | DRG 37 ==
LOC: M.ERS 12:51 → M.TBA-ER 14:05 → M.2W 14:05 → M.ICU 12-13 15:51
PROVIDERS: Emergency Medicine Emergency Medical Services; Surgery Vascular Surgery; ADMIT Internal Medicine
PROC: 03CK0ZZ Extirpation of Matter from Right Internal Carotid Artery, Open Approach (ICD-10-PCS; principal; 2018-12-13)
PROC: 03CN0ZZ Extirpation of Matter from Left External Carotid Artery, Open Approach (ICD-10-PCS; principal; 2018-12-13)
PROC: 03UN0KZ Supplement Left External Carotid Artery with Nonautologous Tissue Substitute, Open Approach (ICD-10-PCS; principal; 2018-12-13)
PROC: 03UK0KZ Supplement Right Internal Carotid Artery with Nonautologous Tissue Substitute, Open Approach (ICD-10-PCS; principal; 2018-12-13)
DX: I65.21 Occlusion and stenosis of right carotid artery (principal); N17.0 Acute kidney failure with tubular necrosis; K21.9 Gastro-esophageal reflux disease without esophagitis; F32.9 Major depressive disorder, single episode, unspecified; I12.9 Hypertensive chronic kidney disease with stage 1 through stage 4 chronic kidney disease, or unspecified chronic kidney disease; I25.10 Atherosclerotic heart disease of native coronary artery without angina pectoris; F41.9 Anxiety disorder, unspecified; E86.0 Dehydration; I35.0 Nonrheumatic aortic (valve) stenosis; E78.5 Hyperlipidemia, unspecified; N40.0 Benign prostatic hyperplasia without lower urinary tract symptoms; N18.3 Chronic kidney disease, stage 3 (moderate); E11.22 Type 2 diabetes mellitus with diabetic chronic kidney disease; Z79.82 Long term (current) use of aspirin; Z95.1 Presence of aortocoronary bypass graft; Z79.899 Other long term (current) drug therapy

== ENCOUNTER 2018-12-22 10:44 | Inpatient (IN) | payer OTHER ==
[~2018-12-22] VITALS: Ht 177.8 cm; Wt 96.0 kg
[~2018-12-22 10:44] MED LIST changes: +ASA81BEC PO; +LIPITOR80 MG PO; +LOPRESSOR25 PO; +NORCO 5-325 TA1 EACH PO
[2018-12-22 10:46] VITALS: BP 161/86
[2018-12-22 11:03] LABS: ABSOLUTE BASOPHILS 0.1 thou/uL (0.0-0.2); ABSOLUTE EOSINOPHILS 0.2 thou/uL (0.0-0.7); ABSOLUTE LYMPHOCYTES 1.2 thou/uL (0.8-5.3); ABSOLUTE MONOCYTES 0.6 thou/uL (0.0-1.2); ABSOLUTE NEUTROPHILS 5.4 thou/uL (1.6-8.1); BASOPHILS 1.1 %; EOSINOPHILS 2.9 %; HEMATOCRIT 48.1 % (42.0-52.0); HEMOGLOBIN 15.8 gm/dL (14.0-18.0); LYMPHOCYTES 16.1 %; MCH 25.7 pg (26.0-34.0); MCHC 32.9 g/dL (28.0-37.0); MCV 78.2 fL (80.0-100.0); MONOCYTES 8.2 %; MPV 9.9 fl. (7.2-11.1); NUCLEATED RBCS 0 /100WBC; PLATELET COUNT* 265 thou/uL (150-400); POLYS 71.7 %; RBC 6.15 mil/uL (4.50-6.00); RDW-CV 14.6 % (10.5-14.5); WBC 7.5 thou/uL (4.0-11.0)
[2018-12-22 11:13] LABS: PROTIME 10.2 Seconds (9.20-11.50)
[2018-12-22 11:21] LABS: ALBUMIN 3.8 g/dL (3.4-5.0); ALKALINE PHOSPHATASE 107 U/L (46-116); ANION GAP 9 mmol/L (7-16); BUN 27 mg/dL (7-18); CALCIUM 9.4 mg/dL (8.5-10.1); CHLORIDE 100 mmol/L (98-107); CO2 25 mmol/L (21-32); CREATININE 1.5 mg/dL (0.6-1.3); GLUCOSE 275 mg/dL (70-99); POTASSIUM 4.9 mmol/L (3.5-5.1); SGOT 18 U/L (15-37); SGPT 33 U/L (30-65); SODIUM 134 mmol/L (136-145); TOTAL BILIRUBIN 0.7 mg/dL (<0.1-1.0); TOTAL PROTEIN 7.9 g/dL (6.4-8.2); TROPONIN-I LEVEL <0.06 ng/mL (<0.06)
[2018-12-22 14:05] VITALS: BP 170/84
[2018-12-22 14:34] VITALS: BP 153/83
--- NOTE | 2018-12-22 15:06 | NUR ---
RECIEVIED REPORT FROM ANNITA RN IN ER OF EXPECTED ADMISSION AT 1350- DX: STROKE- PT ARRIVED TO ROOM 229 VIA CART SBA VIA AMB TO BED- USED CAR LOT PORTER PLACED ORDERED, TRACING SR - 325MG OF ASPIRIN GIVEN IN ER PRIOR TO ADMSISION WITH SWALLOW STUDY REPORTED TO HAVE BEEN COMPLETED- PT A&O X4- CONTINENT OF BOWEL AND BLADDER- SBA WITH TRANSFERS FOR SAFETY- LCTA, DIMINISHED IN BASES- RESP EVEN AND UN-LABORED- VS 98.7 18 153/83 84 97% ON RA-ABD FIRM/ROUND/NON-TENDER, BS X4 QUADS- PT REPORTS TO HAVE HAD BM THIS AM- IV NOTED TO LEFT WRIST INTACT AND SL- NIH NOTED TO BE 0 AT TIME OF ADMISSION- NO FACIAL DROP NOTED, FAMILY AT BEDSIDE STATES IT TO BE IMPROVED WELL- SLIGHT SLUR IN SPEECH THAT PT FAMILY STATES HAS BEEN THAT WAY SINCE PRIOR ADMISSION 12/09/18- SKIN C/D/I- PT REPORTS NUMBNESS TO BE RESOLVED AND DENIES AND PAIN/DISCOMFORT- CALL LIGHT AND PERSONAL BELONGINGS WITH IN REACH- HOURLY ROUNDS IN PLACE R/T SAFETY/NEEDS- ALL NEEDS MET AT THIS TIME-TM
--- NOTE | 2018-12-22 15:20 | EKG ---
[place] [address] ELECTROCARDIOGRAM REPORT Name: COREENLENA Gilbert Room: [address] ADM IN .R.#: [id number] Admission: 12/22/18 Attend Phys: Fuentes Curry MD Discharge: Date of : 38 Report #: [id number] THIS REPORT FOR: //name// [facility] ED Test Date: 2018-12-22 Test Time: 10:57:37 Pat Name: LENA ANGELA Department: Room: [facility] Gender: M Manager Diversity: Payton FERNANDEZ : 1940 Requested By: Cedric García Order Number: [id number] MD: Porter Lomeli Measurements Intervals [place] Rate: 93 P: 42 MO: 152 QRS: 52 QRSD: 91 T: 5 QT: 397 QTc: 494 Interpretive Statements Sinus rhythm Probable left atrial enlargement Borderline T abnormalities, inferior leads Compared to ECG 12/09/2018 12:55:53 T-wave abnormality now present Sinus tachycardia no longer present ST (T wave) deviation no longer present Electronically Signed On 12-22-2018 15:19:51 CDT by Porter Lomeli [email or web address] <ELECTRONICALLY SIGNED> By: Porter Lomeli MD, FACC 12/22/18 1519 1057 1057 Porter Lomeli MD, FAC /EPI
[2018-12-22 19:50] VITALS: BP 135/73
[2018-12-23] VITALS: BP 150/76
[2018-12-23 04:00] VITALS: BP 105/60
[2018-12-23 04:52] LABS: HEMATOCRIT 40.1 % (42.0-52.0); MCH 25.6 pg (26.0-34.0); MCHC 32.9 g/dL (28.0-37.0); MCV 77.8 fL (80.0-100.0); MPV 9.5 fl. (7.2-11.1); NUCLEATED RBCS 0 /100WBC; PLATELET COUNT* 236 thou/uL (150-400); RBC 5.15 mil/uL (4.50-6.00); RDW-CV 14.4 % (10.5-14.5); WBC 9.5 thou/uL (4.0-11.0)
[2018-12-23 05:05] LABS: ANION GAP 8 mmol/L (7-16); BUN 31 mg/dL (7-18); CALCIUM 8.5 mg/dL (8.5-10.1); CHLORIDE 99 mmol/L (98-107); CHOLESTEROL 157 mg/dL (<200); CO2 24 mmol/L (21-32); CREATININE 1.5 mg/dL (0.6-1.3); GLUCOSE 264 mg/dL (70-99); HDL CHOLESTEROL 38 mg/dL (>40); LDL CHOLESTEROL 110 mg/dL (<100); POTASSIUM 5.8 mmol/L (3.5-5.1); SERUM ASSESSMENT CLEAR; SODIUM 131 mmol/L (136-145); TC:HDL 4.1 Ratio (Not establshd); TRIGLYCERIDE 48 mg/dL (<150); VLDL 10 mg/dL (<40)
[2018-12-23 05:32] LABS: HEMOGLOBIN 13.2 gm/dL (14.0-18.0)
--- NOTE | 2018-12-23 05:49 | NUR ---
VITALS WNL. SEE MAR. SEE CHARTING. FALL PRECAUTIONS IN PLACE. HOURLY ROUNDING FOR SAFETY/
[2018-12-23 06:40] LABS: ABSOLUTE BASOPHILS 0.2 thou/uL (0.0-0.2); ABSOLUTE LYMPHOCYTES 1.3 thou/uL (0.8-5.3); ABSOLUTE MONOCYTES 0.1 thou/uL (0.0-1.2); ABSOLUTE NEUTROPHILS 7.9 thou/uL (1.6-8.1); PLATELET ESTIMATE ADEQUATE
[2018-12-23 06:41] LABS: ANISOCYTOSIS 1+; POIKILOCYTOSIS 1+
[2018-12-23 08:00] VITALS: BP 141/65
--- NOTE | 2018-12-23 10:16 | CON ---
[address] [address] CONSULTATION Name: COREENLENA Ofelia Room: [address] IN .R.#: [id number] Admission: 12/22/18 Attend Phys: Fuentes Curry MD Discharge: Date of : 38 Report #: [id number] THIS REPORT FOR: //name// CC: Fuentes Morales DATE OF SERVICE: 12/22/2018 HISTORY OF PRESENT ILLNESS: This is an 78-year-old male patient who is well known to me from the prior admissions. This patient was admitted with some question of droopiness on the left eye. He is also having numbness, which is chronic and most likely secondary to carpal tunnel syndrome and neuropathy. He had no facial droop at the moment. We did an MRI of the brain, which was originally read differently. I called the radiologist and asked them to compare with the prior MRI and they did compare it and dictated addendums to all three studies. He does appear to have stroke on the right side, which is present since last MRI. His MRA is patent and because of that, I got all 4 carotid Doppler repeated because of MRA report, which does not show any significant stenosis on either side. REVIEW OF SYSTEMS: Summarized in prior notes. This patient has history of stroke. He has multiple vascular risk factors. He is on a high dose of statin. He is on combination of aspirin and Plavix. He also has anxiety, which complicated symptoms. A lot of his symptoms are because of anxiety, carpal tunnel syndrome and neuropathy. I need to review his records in the computer because we were going to do 30-day event monitor in this patient. Rest of the 14-point review of systems is as summarized in the prior notes. PAST MEDICAL HISTORY: Positive for CVA. FAMILY HISTORY: Negative for any early age stroke. SOCIAL HISTORY: He does not abuse alcohol. His last sed rate was normal. PHYSICAL EXAMINATION: Cardiac examination was unremarkable. No respiratory difficulty was noticed. He is a well-developed individual who does not have much dysmorphic features of eyes, ears and face. Blood pressure is 135/73. His lab is summarized above. His MRIs were reviewed and has been summarized above. IMPRESSION: This patient does have additional tiny strokes since his surgery. He has multiple vascular risk factors. Those risk factors are most likely the cause of his symptoms. I think the best will be to give [place] [address] CONSULTATION Name: LENA ANGELA Room: [address]#: [id number] Admission: 12/22/18 Attend Phys: Fuentes Curry MD Discharge: Date of : 38 Report #: [id number] medication to have the affect both statin, aspirin and Plavix. He is not a candidate for anticoagulation because no atrial fibrillation has been documented. I will check my office notes tomorrow and we will do 30-day event monitor and we will see if cardiolipin antibodies and homocysteine screen was checked or not. His kidney function is borderline. He can have the dye if it is necessary. I asked him to drink a lot of fluids. Tomorrow, I think we should review these films with our radiologist here and they have either suggested catheter angio. We need to find out if we should do catheter angio or CT angio or none of them depending upon their feeling, but I do not think we should do both of them. Dr. Torres is on-call today and he will be taking over the service from tomorrow. I have discussed with him the patient and he is agreeable with this plan. He will follow up this patient tomorrow and will discuss with the radiologist and make further plan. I discussed with the patient in detail and he understands that, he understands his options and he wants to follow this plan. <ELECTRONICALLY SIGNED> By: Marciano Ríos MD 12/23/18 1016 2248 [id number] Ríos MD /nt
--- NOTE | 2018-12-23 10:25 | NUR ---
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
[2018-12-23 11:54] VITALS: BP 141/63
--- NOTE | 2018-12-23 14:43 | NUR ---
WAS ASKED THIS AM TO ARRANGE TRANSFER TO FOR 2ND HIGHER LEVEL NEURO EVAL. CALLED AND FAXED INFO TO BEENA/NICOLE. SHE CALLED BACK AT [address] PEGGY HUDDLESTON. COBRA FORM COMPLETED, AMBULANCE SET UP FOR 1430. CHART COPIED. ABEBE ARGUETA CALLED REPORT TO . PT AND DTR IN AGREEMENT AND AWARE OF PLAN. GAVE DTR ADDRESS, PHONE, NAME AND [id number]
[2018-12-23 22:08] LABS: GLYCOHEMOGLOBIN (HGB A1C) 9.2 % (4.8-5.6)
== END 2018-12-23 15:00 | disposition short-term general hospital (02) | DRG 102 ==
LOC: M.ERS 10:44 → M.2W 12:06 → M.TBA-ER 12:06 → M.2W 14:21
PROVIDERS: Emergency Medicine Emergency Medical Services; ADMIT Internal Medicine
DX: I67.7 Cerebral arteritis, not elsewhere classified (principal); I63.9 Cerebral infarction, unspecified; N17.9 Acute kidney failure, unspecified; I10 Essential (primary) hypertension; K21.9 Gastro-esophageal reflux disease without esophagitis; F32.9 Major depressive disorder, single episode, unspecified; N18.9 Chronic kidney disease, unspecified; E11.22 Type 2 diabetes mellitus with diabetic chronic kidney disease; I12.9 Hypertensive chronic kidney disease with stage 1 through stage 4 chronic kidney disease, or unspecified chronic kidney disease; R20.2 Paresthesia of skin; E11.40 Type 2 diabetes mellitus with diabetic neuropathy, unspecified; I25.10 Atherosclerotic heart disease of native coronary artery without angina pectoris; F41.9 Anxiety disorder, unspecified; F43.10 Post-traumatic stress disorder, unspecified; Z95.1 Presence of aortocoronary bypass graft; Z79.02 Long term (current) use of antithrombotics/antiplatelets; Z79.4 Long term (current) use of insulin; Z79.82 Long term (current) use of aspirin; Z79.899 Other long term (current) drug therapy